=== PATIENT | female | born 1955 | race Caucasian/White ===

== ENCOUNTER 2017-01-24 02:42 | Emergency (ER) | payer MEDICARE, OTHER ==
[~2017-01-24] VITALS: Ht 167.6 cm; Wt 81.8 kg
[~2017-01-24 02:42] MED LIST: ARIP15TA3 PO; ATEN50TA PO; LISI-662 PO; NYST30CR9 TP; OMEP20 PO; SIMV-259 PO; VITAD1000 PO
[2017-01-24 03:34] LABS: ANION GAP 7 mmol/L (8-16); CALCIUM, TOTAL 9.4 mg/dL (8.8-10.5); CARBON DIOXIDE 30 mmol/L (22-29); CHLORIDE 101 mmol/L (98-107); CREATININE 0.72 mg/dL (0.60-1.30); GLOMERULAR FILTR. RATE CALC > 60 mL/min (>60); POTASSIUM 3.7 mmol/L (3.5-5.1); SODIUM SERUM 138 mmol/L (136-145); UREA NITROGEN, BLOOD 8 mg/dL (7-18)
[2017-01-24 03:47] LABS: ALANINE AMINOTRANSFERASE 24 U/L (12-78); ALBUMIN 3.2 g/dL (3.4-5.0); ASPARTATE AMINOTRANSFERASE 20 U/L (15-37); BILIRUBIN,TOTAL 0.5 mg/dL (0.1-1.0); TOTAL PROTEIN, SERUM 7.6 g/dL (6.4-8.2)
[2017-01-24 04:11] LABS: BASOPHILS # (AUTO) 0.04 K/uL (0.00-0.20); BASOPHILS % (AUTO) 0.5 % (0.0-2.0); EOSINOPHILS % (AUTO) 1.23 % (1.0-6.0); HEMATOCRIT 35.8 % (36-46); HEMOGLOBIN 11.5 g/dL (12.0-16.0); LYMPHOCYTES # (AUTO) 1.6 K/uL (1.0-4.8); LYMPHOCYTES % (AUTO) 19.3 % (22.0-44.0); MEAN CORPUSCULAR HEMOGLOBIN 28.7 pg (26.0-34.0); MEAN CORPUSCULAR HGB CONC 32.2 G/dL (31.0-37.0); MEAN CORPUSCULAR VOLUME 89 fL (80-100); MONOCYTES # (AUTO) 0.6 K/uL (0.1-1.0); MONOCYTES % (AUTO) 6.9 % (2.0-9.0); NEUTROPHILS # (AUTO) 5.9 K/uL (1.8-7.7); PLATELET COUNT (AUTO) 307 K/uL (150-450); RED BLOOD CELL COUNT(AUTO) 4.01 MIL/uL (4.00-5.20); RED CELL DISTRIBUTION WIDTH 16.8 % (11.5-14.5); WHITE BLOOD COUNT (AUTO) 8.2 K/uL (4.5-11.0)
[2017-01-24] MEDS ORDERED: CEPHALEXIN MONOHYDRATE 500 MG CAPSULE PO ONE (09:30)
[2017-01-24] MEDS ORDERED: SULFAMETHOX/TRIMETH DS 800-160 MG/TABLET PO ONE (09:30)
[2017-01-24 10:00] VITALS: BP 147/85
== END 2017-01-24 10:05 | disposition home or self-care (01) ==
LOC: EMS 02:43
DX: F20.0 Paranoid schizophrenia (principal); L03.116 Cellulitis of left lower limb; F17.210 Nicotine dependence, cigarettes, uncomplicated; Z88.8 Allergy status to other drugs, medicaments and biological substances; Z88.6 Allergy status to analgesic agent
CPT/HCPCS: 36415; 80053; 85025; 99284; 99406; G0480

== ENCOUNTER 2017-02-05 11:48 | Inpatient (IN) | payer MEDICARE, OTHER ==
[~2017-02-05] VITALS: Ht 160 cm; Wt 83.5 kg
[2017-02-05] MEDS ORDERED: LORazepam 2 MG/ML VIAL IM ONE (12:45)
[2017-02-05] MEDS ORDERED: DiphenhydrAMINE HCL 50 MG/ML VIAL IM ONE (12:45)
[2017-02-05] MEDS ORDERED: HALOPERIDOL LACTATE 5 MG/ML VIAL IM ONE (12:45)
[2017-02-05] MEDS ORDERED: DiphenhydrAMINE HCL 50 MG/ML VIAL ONE (12:48)
[2017-02-05] MEDS ORDERED: HALOPERIDOL LACTATE 5 MG/ML VIAL ONE (12:48)
[2017-02-05] MEDS ORDERED: LORazepam 2 MG/ML VIAL ONE (12:48)
[2017-02-05] MEDS ORDERED: CefTRIAXone 1 GM/DEXTROSE 50 ML IV ONE (14:15)
[2017-02-05] MEDS ORDERED: CIPROFLOXACIN 400 MG/D5% WATER 200 ML IV ONE (14:15)
[2017-02-05 14:16] LABS: EOSINOPHILS # (AUTO) 0.07 K/uL (0.00-0.70); EOSINOPHILS % (AUTO) 0.97 % (1.0-6.0); HEMATOCRIT 34.8 % (36-46); HEMOGLOBIN 11.7 g/dL (12.0-16.0); LYMPHOCYTES # (AUTO) 1.3 K/uL (1.0-4.8); LYMPHOCYTES % (AUTO) 17.4 % (22.0-44.0); MEAN CORPUSCULAR HEMOGLOBIN 28.5 pg (26.0-34.0); MEAN CORPUSCULAR HGB CONC 33.6 G/dL (31.0-37.0); MEAN CORPUSCULAR VOLUME 85 fL (80-100); MONOCYTES # (AUTO) 0.3 K/uL (0.1-1.0); MONOCYTES % (AUTO) 3.4 % (2.0-9.0); NEUTROPHILS % (AUTO) 78.2 % (40.0-70.0); PLATELET COUNT (AUTO) 249 K/uL (150-450); WHITE BLOOD COUNT (AUTO) 7.6 K/uL (4.5-11.0)
[2017-02-05 14:30] LABS: ANION GAP 9 mmol/L (8-16); CALCIUM, TOTAL 9.4 mg/dL (8.8-10.5); CARBON DIOXIDE 26 mmol/L (22-29); CHLORIDE 106 mmol/L (98-107); CREATININE 0.69 mg/dL (0.60-1.30); GLOMERULAR FILTR. RATE CALC > 60 mL/min (>60); POTASSIUM 4.4 mmol/L (3.5-5.1); SODIUM SERUM 141 mmol/L (136-145); UREA NITROGEN, BLOOD 10 mg/dL (7-18)
[2017-02-05 14:35] LABS: ALANINE AMINOTRANSFERASE 22 U/L (12-78); ASPARTATE AMINOTRANSFERASE 29 U/L (15-37); BILIRUBIN,TOTAL 0.2 mg/dL (0.1-1.0); TOTAL PROTEIN, SERUM 7.1 g/dL (6.4-8.2)
[2017-02-05] MEDS ORDERED: MORPHINE SULFATE 2 MG/ML SYRINGE IVP ONE (14:45)
[2017-02-05] MEDS ORDERED: SODIUM CL IRRIG SOLN BOTTLE 250 ML IRRIG ONE (17:15)
[2017-02-05 17:39] VITALS: BP 163/100
[2017-02-05] MEDS ORDERED: NIFEdipine 30 MG ER TABLET PO ONE (19:45)
[2017-02-05] MEDS ORDERED: BISACODYL 10 MG RECTAL RECTAL SUPPOSITORY PR PRN (19:45)
[2017-02-05] MEDS ORDERED: ALBUTEROL SULFATE 2.5 MG/0.5 ML NEB SOLUTION NEB PRN (19:45)
[2017-02-05] MEDS ORDERED: MORPHINE SULFATE 2 MG/ML SYRINGE IVP PRN (19:45)
[2017-02-05] MEDS ORDERED: MAGNESIUM HYDROXIDE SUSPENSION 30 ML UDCUP PO PRN (19:45)
[2017-02-05] MEDS ORDERED: ONDANSETRON HCL 4 MG/2 ML VIAL IVP PRN (19:45)
[2017-02-05] MEDS ORDERED: IPRATROPIUM BROMIDE 0.5 MG/2.5 ML NEB SOLUTION NEB PRN (19:45)
[2017-02-05] MEDS ORDERED: ZOLPIDEM TARTRATE 5 MG TABLET PO PRN (19:45)
[2017-02-05 20:09] VITALS: BP 152/78
[2017-02-05] MEDS: PIPERACILLIN/TAZO 3.375 GM/D5W 50 ML IV SCH (22:17)
[2017-02-05] MEDS: DOCUSATE SODIUM 100 MG CAPSULE PO SCH (22:17)
[2017-02-05] MEDS: ACETAMINOPHEN 325 MG TABLET PO PRN (22:35)
[2017-02-05 23:53] VITALS: BP 122/61
[2017-02-06] MEDS: HEPARIN SODIUM,PORCINE 5,000 UNITS/ML VIAL SQ SCH ×4 (00:55→23:39)
[2017-02-06] MEDS: PIPERACILLIN/TAZO 3.375 GM/D5W 50 ML IV SCH ×4 (02:58→20:31)
[2017-02-06 08:00] VITALS: BP 140/72
[2017-02-06] MEDS: PANTOPRAZOLE SODIUM 40 MG/VIAL IVP SCH ×2 (09:00→09:16)
[2017-02-06] MEDS: NIFEdipine 30 MG ER TABLET PO SCH (09:17)
[2017-02-06] MEDS: DOCUSATE SODIUM 100 MG CAPSULE PO SCH ×2 (09:17→20:40)
[2017-02-06] MEDS ORDERED: SODIUM CHLORIDE 0.9% 500 ML IV ONE (09:57)
[2017-02-06] MEDS: MULTIVITAMINS WITH MINERALS, THERAPEUTIC TABLET PO SCH (14:00)
[2017-02-06 16:04] VITALS: BP 127/72
[2017-02-06 20:00] VITALS: BP 126/68
[2017-02-07 01:34] VITALS: BP 139/87
[2017-02-07] MEDS: PIPERACILLIN/TAZO 3.375 GM/D5W 50 ML IV SCH ×4 (03:16→20:41)
[2017-02-07 04:35] VITALS: BP 146/69
[2017-02-07] MEDS: ACETAMINOPHEN 325 MG TABLET PO PRN (04:42)
[2017-02-07] MEDS: HEPARIN SODIUM,PORCINE 5,000 UNITS/ML VIAL SQ SCH ×2 (08:00→15:33)
[2017-02-07 09:00] VITALS: BP 141/78
[2017-02-07] MEDS: MULTIVITAMINS WITH MINERALS, THERAPEUTIC TABLET PO SCH (09:02)
[2017-02-07] MEDS: NIFEdipine 30 MG ER TABLET PO SCH (09:02)
[2017-02-07] MEDS: PANTOPRAZOLE SODIUM 40 MG/VIAL IVP SCH (09:02)
[2017-02-07] MEDS: DOCUSATE SODIUM 100 MG CAPSULE PO SCH ×2 (09:02→21:00)
[2017-02-07 11:56] VITALS: BP 136/72
[2017-02-07 16:15] VITALS: BP 139/74
[2017-02-07 20:56] VITALS: BP 138/90
[2017-02-08] MEDS: PIPERACILLIN/TAZO 3.375 GM/D5W 50 ML IV SCH ×2 (03:13→08:45)
[2017-02-08] MEDS: HEPARIN SODIUM,PORCINE 5,000 UNITS/ML VIAL SQ SCH ×4 (03:13→23:52)
[2017-02-08 03:21] VITALS: BP 120/49
[2017-02-08 07:43] VITALS: BP 153/71
[2017-02-08 08:45] LABS: BASOPHILS % (AUTO) 0.4 % (0.0-2.0); HEMATOCRIT 42.4 % (36-46); HEMOGLOBIN 13.9 g/dL (12.0-16.0); LYMPHOCYTES # (AUTO) 1.4 K/uL (1.0-4.8); LYMPHOCYTES % (AUTO) 21.8 % (22.0-44.0); MEAN CORPUSCULAR HEMOGLOBIN 28.5 pg (26.0-34.0); MEAN CORPUSCULAR HGB CONC 32.8 G/dL (31.0-37.0); MEAN CORPUSCULAR VOLUME 87 fL (80-100); MONOCYTES # (AUTO) 0.3 K/uL (0.1-1.0); MONOCYTES % (AUTO) 4.3 % (2.0-9.0); NEUTROPHILS # (AUTO) 4.8 K/uL (1.8-7.7); NEUTROPHILS % (AUTO) 72.5 % (40.0-70.0); PLATELET COUNT (AUTO) 282 K/uL (150-450); RED BLOOD CELL COUNT(AUTO) 4.88 MIL/uL (4.00-5.20); RED CELL DISTRIBUTION WIDTH 15.5 % (11.5-14.5); WHITE BLOOD COUNT (AUTO) 6.6 K/uL (4.5-11.0)
[2017-02-08] MEDS: PANTOPRAZOLE SODIUM 40 MG/VIAL IVP SCH (08:45)
[2017-02-08] MEDS: NIFEdipine 30 MG ER TABLET PO SCH (08:45)
[2017-02-08] MEDS: DOCUSATE SODIUM 100 MG CAPSULE PO SCH ×2 (08:46→20:24)
[2017-02-08] MEDS: MULTIVITAMINS WITH MINERALS, THERAPEUTIC TABLET PO SCH (08:46)
[2017-02-08 09:19] LABS: ANION GAP 9 mmol/L (8-16); CALCIUM, TOTAL 9.2 mg/dL (8.8-10.5); CARBON DIOXIDE 27 mmol/L (22-29); CHLORIDE 99 mmol/L (98-107); CREATININE 0.93 mg/dL (0.60-1.30); GLOMERULAR FILTR. RATE CALC > 60 mL/min (>60); POTASSIUM 4.3 mmol/L (3.5-5.1); SODIUM SERUM 135 mmol/L (136-145); UREA NITROGEN, BLOOD 14 mg/dL (7-18)
[2017-02-08 11:47] VITALS: BP 153/81
[2017-02-08] MEDS: ARIPiprazole 15 MG TABLET PO SCH (12:00)
[2017-02-08 15:30] VITALS: BP 149/77
[2017-02-08 20:16] VITALS: BP 152/71
[2017-02-08] MEDS: SULFAMETHOX/TRIMETH DS 800-160 MG/TABLET PO SCH (20:24)
[2017-02-08] MEDS: ACETAMINOPHEN 325 MG TABLET PO PRN (20:47)
[2017-02-08 23:00] VITALS: BP 127/86
[2017-02-09] MEDS: HYDROCODONE/ACETAMINOPHEN 5-325 MG TABLET PO PRN (02:16)
[2017-02-09] MEDS: LORazepam 1 MG TABLET PO PRN (02:44)
[2017-02-09 04:46] VITALS: BP 122/60
[2017-02-09] MEDS: MULTIVITAMINS WITH MINERALS, THERAPEUTIC TABLET PO SCH (09:00)
[2017-02-09] MEDS: SULFAMETHOX/TRIMETH DS 800-160 MG/TABLET PO SCH ×2 (09:00→20:02)
[2017-02-09] MEDS: PANTOPRAZOLE SODIUM 40 MG DR TABLET PO SCH (09:00)
[2017-02-09] MEDS: DOCUSATE SODIUM 100 MG CAPSULE PO SCH ×2 (09:00→20:02)
[2017-02-09] MEDS: NIFEdipine 30 MG ER TABLET PO SCH (09:00)
[2017-02-09] MEDS: ARIPiprazole 15 MG TABLET PO SCH (09:00)
[2017-02-09] MEDS: HEPARIN SODIUM,PORCINE 5,000 UNITS/ML VIAL SQ SCH ×3 (09:00→23:51)
[2017-02-09 23:47] VITALS: BP 142/65
[2017-02-10 09:00] VITALS: BP 129/87
[2017-02-10] MEDS: PANTOPRAZOLE SODIUM 40 MG DR TABLET PO SCH (09:08)
[2017-02-10] MEDS: HYDROCODONE/ACETAMINOPHEN 5-325 MG TABLET PO PRN ×2 (09:09→15:41)
[2017-02-10] MEDS: MULTIVITAMINS WITH MINERALS, THERAPEUTIC TABLET PO SCH (09:09)
[2017-02-10] MEDS: SULFAMETHOX/TRIMETH DS 800-160 MG/TABLET PO SCH ×2 (09:09→21:24)
[2017-02-10] MEDS: DOCUSATE SODIUM 100 MG CAPSULE PO SCH ×2 (09:09→21:24)
[2017-02-10] MEDS: LORazepam 1 MG TABLET PO PRN ×2 (09:09→15:41)
[2017-02-10] MEDS: HEPARIN SODIUM,PORCINE 5,000 UNITS/ML VIAL SQ SCH ×3 (09:09→23:51)
[2017-02-10] MEDS: HALOPERIDOL 5 MG TABLET PO PRN ×3 (09:10→15:41)
[2017-02-10] MEDS: ARIPiprazole 15 MG TABLET PO SCH (09:10)
[2017-02-10] MEDS: NIFEdipine 30 MG ER TABLET PO SCH (09:10)
[2017-02-10 19:53] VITALS: BP 147/77
[2017-02-11 00:18] VITALS: BP 141/69
[2017-02-11 06:04] VITALS: BP 128/72
[2017-02-11 07:52] VITALS: BP 135/76
[2017-02-11] MEDS: HEPARIN SODIUM,PORCINE 5,000 UNITS/ML VIAL SQ SCH (08:00)
[2017-02-11] MEDS: SULFAMETHOX/TRIMETH DS 800-160 MG/TABLET PO SCH (08:51)
[2017-02-11] MEDS: NIFEdipine 30 MG ER TABLET PO SCH (08:51)
[2017-02-11] MEDS: MULTIVITAMINS WITH MINERALS, THERAPEUTIC TABLET PO SCH (08:51)
[2017-02-11] MEDS: DOCUSATE SODIUM 100 MG CAPSULE PO SCH (08:51)
[2017-02-11] MEDS: PANTOPRAZOLE SODIUM 40 MG DR TABLET PO SCH (08:51)
[2017-02-11] MEDS ORDERED: RisperiDONE 2 MG TABLET PO SCH (09:00)
[2017-02-11 11:19] VITALS: BP 115/80
== END 2017-02-11 11:45 | DRG 603 ==
LOC: EMS 11:50 → 6N 14:29
PROVIDERS: ADMIT Hospitalist; ATTEND Hospitalist
DX: L03.116 Cellulitis of left lower limb (principal); E44.0 Moderate protein-calorie malnutrition; F20.0 Paranoid schizophrenia; S81.802A Unspecified open wound, left lower leg, initial encounter; B96.4 Proteus (mirabilis) (morganii) as the cause of diseases classified elsewhere; J44.9 Chronic obstructive pulmonary disease, unspecified; F17.210 Nicotine dependence, cigarettes, uncomplicated; I10 Essential (primary) hypertension; Z68.32 Body mass index [BMI] 32.0-32.9, adult; E66.9 Obesity, unspecified; F32.9 Major depressive disorder, single episode, unspecified; Z53.29 Procedure and treatment not carried out because of patient's decision for other reasons; X58.XXXA Exposure to other specified factors, initial encounter; Y93.89 Activity, other specified; Y92.89 Other specified places as the place of occurrence of the external cause; Y99.8 Other external cause status; Z91.19 Patient's noncompliance with other medical treatment and regimen; Z90.49 Acquired absence of other specified parts of digestive tract; Z88.6 Allergy status to analgesic agent; Z88.8 Allergy status to other drugs, medicaments and biological substances
CPT/HCPCS: 87070; 87205; 96365; 96368; 96372; 99285; C9113; G0480; J0696; J0744; J1200; J1630; J1644; J2060; J2543; J7040

== ENCOUNTER 2017-03-01 11:55 | Inpatient (IN) | payer MEDICARE, OTHER ==
[~2017-03-01] VITALS: Ht 160 cm; Wt 81.8 kg
[~2017-03-01 11:55] MED LIST changes: -ARIP15TA3 PO; -ATEN50TA PO; +DSS100 PO; +HALO5 PO; -LISI-662 PO; +MV-M1TAB2 PO; +NIFE30TA5 PO; -NYST30CR9 TP; -OMEP20 PO; +PANT40TA25 PO; -SIMV-259 PO; -VITAD1000 PO
[2017-03-01 13:18] LABS: ANION GAP 7 mmol/L (8-16); CALCIUM, TOTAL 8.7 mg/dL (8.8-10.5); CARBON DIOXIDE 31 mmol/L (22-29); CHLORIDE 103 mmol/L (98-107); CREATININE 0.64 mg/dL (0.60-1.30); GLOMERULAR FILTR. RATE CALC > 60 mL/min (>60); SODIUM SERUM 141 mmol/L (136-145); UREA NITROGEN, BLOOD 11 mg/dL (7-18)
[2017-03-01 13:21] LABS: BASOPHILS % (AUTO) 0.2 % (0.0-2.0); HEMATOCRIT 34.9 % (36-46); HEMOGLOBIN 11.8 g/dL (12.0-16.0); LYMPHOCYTES # (AUTO) 1.3 K/uL (1.0-4.8); LYMPHOCYTES % (AUTO) 16.3 % (22.0-44.0); MEAN CORPUSCULAR HEMOGLOBIN 29.2 pg (26.0-34.0); MEAN CORPUSCULAR HGB CONC 33.8 G/dL (31.0-37.0); MEAN CORPUSCULAR VOLUME 86 fL (80-100); MONOCYTES # (AUTO) 0.6 K/uL (0.1-1.0); MONOCYTES % (AUTO) 7.6 % (2.0-9.0); NEUTROPHILS # (AUTO) 5.9 K/uL (1.8-7.7); NEUTROPHILS % (AUTO) 74.9 % (40.0-70.0); PLATELET COUNT (AUTO) 297 K/uL (150-450); RED BLOOD CELL COUNT(AUTO) 4.05 MIL/uL (4.00-5.20); RED CELL DISTRIBUTION WIDTH 15.1 % (11.5-14.5); WHITE BLOOD COUNT (AUTO) 7.9 K/uL (4.5-11.0)
[2017-03-01 13:25] LABS: ALANINE AMINOTRANSFERASE 23 U/L (12-78); ALBUMIN 3.1 g/dL (3.4-5.0); ASPARTATE AMINOTRANSFERASE 20 U/L (15-37); BILIRUBIN,TOTAL 0.2 mg/dL (0.1-1.0)
[2017-03-01] MEDS ORDERED: VANCOMYCIN HCL 1 GM/D5% WATER 200 ML IV ONE (13:30)
[2017-03-01] MEDS ORDERED: HALOPERIDOL 5 MG TABLET PO ONE (13:45)
[2017-03-01] MEDS ORDERED: LORazepam 2 MG TABLET PO ONE (13:45)
[2017-03-01] MEDS ORDERED: ONDANSETRON HCL 4 MG/2 ML VIAL IVP PRN ×2 (13:45→18:45)
[2017-03-01] MEDS ORDERED: ACETAMINOPHEN 325 MG TABLET PO PRN (13:45)
[2017-03-01] MEDS ORDERED: SODIUM CHLORIDE 0.9% 500 ML IV ONE (16:40)
[2017-03-01 17:01] VITALS: BP 154/91
[2017-03-01] MEDS ORDERED: MORPHINE SULFATE 2 MG/ML SYRINGE IVP PRN (18:45)
[2017-03-01] MEDS ORDERED: MAGNESIUM HYDROXIDE SUSPENSION 30 ML UDCUP PO PRN (18:45)
[2017-03-01] MEDS ORDERED: BISACODYL 10 MG RECTAL RECTAL SUPPOSITORY PR PRN (18:45)
[2017-03-01] MEDS ORDERED: ZOLPIDEM TARTRATE 5 MG TABLET PO PRN (18:45)
[2017-03-01] MEDS ORDERED: *CLINICAL-CEFTAROLINE DOSING CLINICAL ONE (18:45)
[2017-03-01] MEDS ORDERED: CEFTAROLINE 600 MG/D5W 250 ML IV SCH (19:15)
[2017-03-01 20:15] VITALS: BP 129/69
[2017-03-01] MEDS: CEFTAROLINE 600 MG/D5W 250 ML IV SCH (20:28)
[2017-03-01] MEDS: HALOPERIDOL 5 MG TABLET PO SCH (21:00)
[2017-03-01] MEDS: DOCUSATE SODIUM 100 MG CAPSULE PO SCH (21:00)
[2017-03-02] VITALS: BP 131/64
[2017-03-02 04:00] VITALS: BP 110/52
[2017-03-02 07:34] VITALS: BP 144/85
[2017-03-02] MEDS: HEPARIN SODIUM,PORCINE 5,000 UNITS/ML VIAL SQ SCH ×3 (08:00→15:17)
[2017-03-02] MEDS: CEFTAROLINE 600 MG/D5W 250 ML IV SCH ×2 (08:00→21:07)
[2017-03-02] MEDS: NIFEdipine 30 MG ER TABLET PO SCH (09:00)
[2017-03-02] MEDS: DOCUSATE SODIUM 100 MG CAPSULE PO SCH ×2 (09:00→21:00)
[2017-03-02] MEDS: MULTIVITAMINS WITH MINERALS, THERAPEUTIC TABLET PO SCH (09:00)
[2017-03-02] MEDS: PANTOPRAZOLE SODIUM 40 MG DR TABLET PO SCH (09:00)
[2017-03-02] MEDS: HALOPERIDOL 5 MG TABLET PO SCH ×2 (09:00→21:00)
[2017-03-02 11:06] VITALS: BP 125/59
[2017-03-02] MEDS: ACETAMINOPHEN 325 MG TABLET PO PRN (13:10)
[2017-03-02] MEDS ORDERED: SODIUM CHLORIDE 0.9% IRRIG BTL 1,000 ML IRRIG ONE (15:04)
[2017-03-02 15:30] VITALS: BP 151/90
[2017-03-02 19:13] VITALS: BP 137/84
[2017-03-02] MEDS ORDERED: LORazepam 2 MG/ML VIAL IVP PRN (20:15)
[2017-03-02] MEDS ORDERED: HALOPERIDOL 5 MG TABLET PO SCH (21:00)
[2017-03-02] MEDS: HYDROCODONE/ACETAMINOPHEN 5-325 MG TABLET PO PRN (21:14)
[2017-03-03 04:28] VITALS: BP 139/81
[2017-03-03 07:50] VITALS: BP 142/84
[2017-03-03] MEDS: CEFTAROLINE 600 MG/D5W 250 ML IV SCH (08:00)
[2017-03-03] MEDS: HEPARIN SODIUM,PORCINE 5,000 UNITS/ML VIAL SQ SCH ×4 (08:00→23:30)
[2017-03-03] MEDS: ACETAMINOPHEN 325 MG TABLET PO PRN (08:02)
[2017-03-03] MEDS: MULTIVITAMINS WITH MINERALS, THERAPEUTIC TABLET PO SCH (08:06)
[2017-03-03] MEDS: PANTOPRAZOLE SODIUM 40 MG DR TABLET PO SCH (08:06)
[2017-03-03] MEDS: HALOPERIDOL 5 MG TABLET PO SCH ×2 (08:06→22:49)
[2017-03-03] MEDS: DOCUSATE SODIUM 100 MG CAPSULE PO SCH ×2 (08:06→22:48)
[2017-03-03] MEDS: NIFEdipine 30 MG ER TABLET PO SCH (08:06)
[2017-03-03 12:30] VITALS: BP 148/89
[2017-03-03] MEDS: LORazepam 2 MG/ML VIAL IM PRN (14:18)
[2017-03-03 15:48] VITALS: BP 136/74
[2017-03-03] MEDS: CEPHALEXIN MONOHYDRATE 500 MG CAPSULE PO SCH ×2 (17:47→23:24)
[2017-03-03 19:27] VITALS: BP 130/88
[2017-03-03] MEDS: SULFAMETHOX/TRIMETH DS 800-160 MG/TABLET PO SCH (22:48)
[2017-03-03] MEDS: LORazepam 1 MG TABLET PO PRN (23:24)
[2017-03-04 00:10] VITALS: BP 142/78
[2017-03-04 05:09] VITALS: BP 134/82
[2017-03-04] MEDS: CEPHALEXIN MONOHYDRATE 500 MG CAPSULE PO SCH ×5 (05:50→23:41)
[2017-03-04] MEDS: HEPARIN SODIUM,PORCINE 5,000 UNITS/ML VIAL SQ SCH ×3 (08:00→23:50)
[2017-03-04 08:02] VITALS: BP 145/89
[2017-03-04] MEDS: HALOPERIDOL 5 MG TABLET PO SCH (09:40)
[2017-03-04] MEDS: MULTIVITAMINS WITH MINERALS, THERAPEUTIC TABLET PO SCH (09:40)
[2017-03-04] MEDS: DOCUSATE SODIUM 100 MG CAPSULE PO SCH ×2 (09:40→23:41)
[2017-03-04] MEDS: PANTOPRAZOLE SODIUM 40 MG DR TABLET PO SCH (09:41)
[2017-03-04] MEDS: SULFAMETHOX/TRIMETH DS 800-160 MG/TABLET PO SCH ×2 (09:41→23:41)
[2017-03-04] MEDS: NIFEdipine 30 MG ER TABLET PO SCH (09:41)
[2017-03-04 11:48] VITALS: BP 146/81
[2017-03-04] MEDS ORDERED: SODIUM CL IRRIG SOLN BOTTLE 250 ML IRRIG ONE (13:58)
[2017-03-04] MEDS: LORazepam 2 MG/ML VIAL IM PRN (14:40)
[2017-03-04 15:26] VITALS: BP 139/91
[2017-03-04] MEDS: LORazepam 1 MG TABLET PO PRN (23:41)
[2017-03-04] MEDS: HALOPERIDOL 10 MG TABLET PO SCH (23:41)
[2017-03-05 00:01] VITALS: BP 129/82
[2017-03-05] MEDS: ACETAMINOPHEN 325 MG TABLET PO PRN (00:46)
[2017-03-05 04:09] VITALS: BP 126/80
[2017-03-05] MEDS: CEPHALEXIN MONOHYDRATE 500 MG CAPSULE PO SCH ×4 (05:46→23:18)
[2017-03-05 07:44] VITALS: BP 142/79
[2017-03-05] MEDS: SULFAMETHOX/TRIMETH DS 800-160 MG/TABLET PO SCH ×2 (08:37→20:21)
[2017-03-05] MEDS: MULTIVITAMINS WITH MINERALS, THERAPEUTIC TABLET PO SCH (08:38)
[2017-03-05] MEDS: HEPARIN SODIUM,PORCINE 5,000 UNITS/ML VIAL SQ SCH ×3 (08:38→23:22)
[2017-03-05] MEDS: DOCUSATE SODIUM 100 MG CAPSULE PO SCH ×2 (08:38→20:22)
[2017-03-05] MEDS: PANTOPRAZOLE SODIUM 40 MG DR TABLET PO SCH (08:38)
[2017-03-05] MEDS: NIFEdipine 30 MG ER TABLET PO SCH (08:38)
[2017-03-05] MEDS: HALOPERIDOL 10 MG TABLET PO SCH ×2 (08:38→20:21)
[2017-03-05] MEDS: LORazepam 1 MG TABLET PO PRN (08:41)
[2017-03-05 15:34] VITALS: BP 128/82
[2017-03-05 19:30] VITALS: BP 131/80
[2017-03-05 23:30] VITALS: BP 126/80
[2017-03-06 03:30] VITALS: BP 128/78
[2017-03-06] MEDS: CEPHALEXIN MONOHYDRATE 500 MG CAPSULE PO SCH ×3 (05:38→18:22)
[2017-03-06] MEDS: NIFEdipine 30 MG ER TABLET PO SCH (08:21)
[2017-03-06] MEDS: SULFAMETHOX/TRIMETH DS 800-160 MG/TABLET PO SCH (08:21)
[2017-03-06] MEDS: HALOPERIDOL 10 MG TABLET PO SCH (08:21)
[2017-03-06] MEDS: HEPARIN SODIUM,PORCINE 5,000 UNITS/ML VIAL SQ SCH ×2 (08:22→16:00)
[2017-03-06] MEDS: DOCUSATE SODIUM 100 MG CAPSULE PO SCH (08:22)
[2017-03-06] MEDS: PANTOPRAZOLE SODIUM 40 MG DR TABLET PO SCH (08:22)
[2017-03-06] MEDS: MULTIVITAMINS WITH MINERALS, THERAPEUTIC TABLET PO SCH (08:22)
[2017-03-06] MEDS: HYDROCODONE/ACETAMINOPHEN 5-325 MG TABLET PO PRN (10:06)
[2017-03-06] MEDS: LORazepam 1 MG TABLET PO PRN (10:06)
[2017-03-07] MEDS: CEPHALEXIN MONOHYDRATE 500 MG CAPSULE PO SCH ×4 (00:26→18:15)
[2017-03-07] MEDS: DOCUSATE SODIUM 100 MG CAPSULE PO SCH ×3 (00:26→20:04)
[2017-03-07] MEDS: HALOPERIDOL 10 MG TABLET PO SCH ×3 (00:26→20:04)
[2017-03-07] MEDS: SULFAMETHOX/TRIMETH DS 800-160 MG/TABLET PO SCH ×3 (00:27→20:04)
[2017-03-07 00:33] VITALS: BP 139/76
[2017-03-07] MEDS: HEPARIN SODIUM,PORCINE 5,000 UNITS/ML VIAL SQ SCH ×4 (08:00→23:47)
[2017-03-07] MEDS: MULTIVITAMINS WITH MINERALS, THERAPEUTIC TABLET PO SCH (08:53)
[2017-03-07] MEDS: PANTOPRAZOLE SODIUM 40 MG DR TABLET PO SCH (08:53)
[2017-03-07] MEDS: LORazepam 1 MG TABLET PO PRN (08:53)
[2017-03-07] MEDS: NIFEdipine 30 MG ER TABLET PO SCH (08:54)
[2017-03-07] MEDS: RisperiDONE 1 MG TABLET PO SCH ×2 (09:15→20:04)
[2017-03-07 15:00] VITALS: BP 127/80
[2017-03-07 19:29] VITALS: BP 132/84
[2017-03-07] MEDS: LORazepam 2 MG/ML VIAL IM PRN (21:27)
[2017-03-08] VITALS: BP 126/64
[2017-03-08] MEDS: CEPHALEXIN MONOHYDRATE 500 MG CAPSULE PO SCH ×4 (01:40→18:24)
[2017-03-08 04:05] VITALS: BP 128/66
[2017-03-08 07:47] VITALS: BP 127/70
[2017-03-08] MEDS: HEPARIN SODIUM,PORCINE 5,000 UNITS/ML VIAL SQ SCH ×2 (08:00→16:00)
[2017-03-08] MEDS: SULFAMETHOX/TRIMETH DS 800-160 MG/TABLET PO SCH ×2 (10:30→21:39)
[2017-03-08] MEDS: PANTOPRAZOLE SODIUM 40 MG DR TABLET PO SCH (10:30)
[2017-03-08] MEDS: MULTIVITAMINS WITH MINERALS, THERAPEUTIC TABLET PO SCH (10:30)
[2017-03-08] MEDS: DOCUSATE SODIUM 100 MG CAPSULE PO SCH ×2 (10:30→21:39)
[2017-03-08] MEDS: HALOPERIDOL 10 MG TABLET PO SCH ×2 (10:30→21:39)
[2017-03-08] MEDS: NIFEdipine 30 MG ER TABLET PO SCH (10:30)
[2017-03-08] MEDS: RisperiDONE 1 MG TABLET PO SCH ×2 (10:30→21:39)
[2017-03-08 11:27] VITALS: BP 127/80
[2017-03-08 15:27] VITALS: BP 132/80
[2017-03-09] MEDS: CEPHALEXIN MONOHYDRATE 500 MG CAPSULE PO SCH ×5 (01:19→17:28)
[2017-03-09 07:13] VITALS: BP 138/88
[2017-03-09] MEDS: HEPARIN SODIUM,PORCINE 5,000 UNITS/ML VIAL SQ SCH ×4 (08:00→16:00)
[2017-03-09] MEDS: HALOPERIDOL 10 MG TABLET PO SCH ×2 (09:00→20:44)
[2017-03-09] MEDS: PANTOPRAZOLE SODIUM 40 MG DR TABLET PO SCH (09:00)
[2017-03-09] MEDS: NIFEdipine 30 MG ER TABLET PO SCH (09:00)
[2017-03-09] MEDS: SULFAMETHOX/TRIMETH DS 800-160 MG/TABLET PO SCH ×2 (09:00→20:44)
[2017-03-09] MEDS: DOCUSATE SODIUM 100 MG CAPSULE PO SCH ×2 (09:00→20:44)
[2017-03-09] MEDS: MULTIVITAMINS WITH MINERALS, THERAPEUTIC TABLET PO SCH (09:01)
[2017-03-09] MEDS: RisperiDONE 1 MG TABLET PO SCH ×2 (09:01→20:44)
[2017-03-09 11:14] VITALS: BP 135/78
[2017-03-09 15:11] VITALS: BP 129/80
[2017-03-09] MEDS: ACETAMINOPHEN 325 MG TABLET PO PRN (17:28)
[2017-03-09 21:15] VITALS: BP 127/74
[2017-03-10] MEDS: CEPHALEXIN MONOHYDRATE 500 MG CAPSULE PO SCH ×4 (00:14→18:09)
[2017-03-10 01:19] VITALS: BP 120/76
[2017-03-10 05:45] VITALS: BP 134/81
[2017-03-10] MEDS: HEPARIN SODIUM,PORCINE 5,000 UNITS/ML VIAL SQ SCH ×3 (08:00→16:00)
[2017-03-10 08:14] VITALS: BP 132/75
[2017-03-10] MEDS: PANTOPRAZOLE SODIUM 40 MG DR TABLET PO SCH (08:27)
[2017-03-10] MEDS: SULFAMETHOX/TRIMETH DS 800-160 MG/TABLET PO SCH ×2 (08:27→21:16)
[2017-03-10] MEDS: DOCUSATE SODIUM 100 MG CAPSULE PO SCH ×2 (08:27→21:16)
[2017-03-10] MEDS: HALOPERIDOL 10 MG TABLET PO SCH ×2 (08:27→21:16)
[2017-03-10] MEDS: NIFEdipine 30 MG ER TABLET PO SCH (08:27)
[2017-03-10] MEDS: MULTIVITAMINS WITH MINERALS, THERAPEUTIC TABLET PO SCH (08:28)
[2017-03-10] MEDS: RisperiDONE 1 MG TABLET PO SCH ×2 (08:30→21:16)
[2017-03-10 16:22] VITALS: BP 129/74
[2017-03-10 19:29] VITALS: BP 128/76
[2017-03-11] MEDS: CEPHALEXIN MONOHYDRATE 500 MG CAPSULE PO SCH ×4 (00:12→17:27)
[2017-03-11 04:35] VITALS: BP 120/84
[2017-03-11 07:27] VITALS: BP 131/76
[2017-03-11] MEDS: HEPARIN SODIUM,PORCINE 5,000 UNITS/ML VIAL SQ SCH ×3 (08:00→16:00)
[2017-03-11] MEDS: MULTIVITAMINS WITH MINERALS, THERAPEUTIC TABLET PO SCH (08:28)
[2017-03-11] MEDS: PANTOPRAZOLE SODIUM 40 MG DR TABLET PO SCH (08:28)
[2017-03-11] MEDS: SULFAMETHOX/TRIMETH DS 800-160 MG/TABLET PO SCH ×2 (08:28→21:07)
[2017-03-11] MEDS: HALOPERIDOL 10 MG TABLET PO SCH ×2 (08:28→21:07)
[2017-03-11] MEDS: DOCUSATE SODIUM 100 MG CAPSULE PO SCH ×2 (08:29→21:07)
[2017-03-11] MEDS: RisperiDONE 1 MG TABLET PO SCH ×2 (08:29→21:07)
[2017-03-11] MEDS: NIFEdipine 30 MG ER TABLET PO SCH (08:35)
[2017-03-11 11:34] VITALS: BP 124/82
[2017-03-11 15:58] VITALS: BP 140/97
[2017-03-11 20:02] VITALS: BP 148/84
[2017-03-12] VITALS (7 sets, daily range): BP systolic 126–148; BP diastolic 60–85
[2017-03-12] MEDS: CEPHALEXIN MONOHYDRATE 500 MG CAPSULE PO SCH ×5 (00:21→23:27)
[2017-03-12] MEDS: HEPARIN SODIUM,PORCINE 5,000 UNITS/ML VIAL SQ SCH ×4 (08:00→23:27)
[2017-03-12] MEDS: PANTOPRAZOLE SODIUM 40 MG DR TABLET PO SCH (10:10)
[2017-03-12] MEDS: SULFAMETHOX/TRIMETH DS 800-160 MG/TABLET PO SCH ×2 (10:10→21:24)
[2017-03-12] MEDS: MULTIVITAMINS WITH MINERALS, THERAPEUTIC TABLET PO SCH (10:10)
[2017-03-12] MEDS: DOCUSATE SODIUM 100 MG CAPSULE PO SCH ×2 (10:11→21:24)
[2017-03-12] MEDS: HALOPERIDOL 10 MG TABLET PO SCH ×2 (10:11→21:24)
[2017-03-12] MEDS: RisperiDONE 1 MG TABLET PO SCH ×2 (10:12→21:24)
[2017-03-12] MEDS: NIFEdipine 30 MG ER TABLET PO SCH (10:13)
[2017-03-12] MEDS: ACETAMINOPHEN 325 MG TABLET PO PRN (18:57)
[2017-03-12] MEDS: LORazepam 2 MG/ML VIAL IM PRN (21:25)
[2017-03-13 03:30] VITALS: BP 124/66
[2017-03-13] MEDS: CEPHALEXIN MONOHYDRATE 500 MG CAPSULE PO SCH ×3 (06:20→18:40)
[2017-03-13 07:22] VITALS: BP 128/69
[2017-03-13] MEDS: HEPARIN SODIUM,PORCINE 5,000 UNITS/ML VIAL SQ SCH ×2 (08:00→16:00)
[2017-03-13] MEDS: SULFAMETHOX/TRIMETH DS 800-160 MG/TABLET PO SCH ×2 (09:57→21:01)
[2017-03-13] MEDS: HALOPERIDOL 10 MG TABLET PO SCH ×2 (09:57→21:01)
[2017-03-13] MEDS: NIFEdipine 30 MG ER TABLET PO SCH (09:57)
[2017-03-13] MEDS: DOCUSATE SODIUM 100 MG CAPSULE PO SCH ×2 (09:57→21:01)
[2017-03-13] MEDS: PANTOPRAZOLE SODIUM 40 MG DR TABLET PO SCH (09:58)
[2017-03-13] MEDS: MULTIVITAMINS WITH MINERALS, THERAPEUTIC TABLET PO SCH (09:58)
[2017-03-13] MEDS: LORazepam 1 MG TABLET PO PRN (09:58)
[2017-03-13] MEDS: RisperiDONE 1 MG TABLET PO SCH ×2 (09:58→21:01)
[2017-03-13 11:10] VITALS: BP 130/71
[2017-03-13 17:27] VITALS: BP 141/75
[2017-03-13 19:35] VITALS: BP 124/66
[2017-03-13 23:59] VITALS: BP 120/88
[2017-03-14] MEDS: CEPHALEXIN MONOHYDRATE 500 MG CAPSULE PO SCH ×4 (00:25→22:21)
[2017-03-14 04:15] VITALS: BP 136/62
[2017-03-14 07:53] VITALS: BP 157/88
[2017-03-14] MEDS: HEPARIN SODIUM,PORCINE 5,000 UNITS/ML VIAL SQ SCH ×4 (08:00→22:21)
[2017-03-14] MEDS: SULFAMETHOX/TRIMETH DS 800-160 MG/TABLET PO SCH ×2 (08:19→22:21)
[2017-03-14] MEDS: DOCUSATE SODIUM 100 MG CAPSULE PO SCH ×2 (08:19→22:23)
[2017-03-14] MEDS: NIFEdipine 30 MG ER TABLET PO SCH (08:19)
[2017-03-14] MEDS: PANTOPRAZOLE SODIUM 40 MG DR TABLET PO SCH (08:19)
[2017-03-14] MEDS: RisperiDONE 1 MG TABLET PO SCH ×2 (08:19→22:23)
[2017-03-14] MEDS: MULTIVITAMINS WITH MINERALS, THERAPEUTIC TABLET PO SCH (08:19)
[2017-03-14] MEDS: HALOPERIDOL 10 MG TABLET PO SCH ×2 (08:19→22:22)
[2017-03-14 23:17] VITALS: BP 109/67
[2017-03-15 04:30] VITALS: BP 119/66
[2017-03-15] MEDS: CEPHALEXIN MONOHYDRATE 500 MG CAPSULE PO SCH ×4 (05:26→18:00)
[2017-03-15] MEDS: ACETAMINOPHEN 325 MG TABLET PO PRN ×2 (06:38→16:40)
[2017-03-15 07:35] VITALS: BP 141/79
[2017-03-15] MEDS: HEPARIN SODIUM,PORCINE 5,000 UNITS/ML VIAL SQ SCH ×2 (08:00→16:00)
[2017-03-15] MEDS: SULFAMETHOX/TRIMETH DS 800-160 MG/TABLET PO SCH (08:42)
[2017-03-15] MEDS: NIFEdipine 30 MG ER TABLET PO SCH (08:43)
[2017-03-15] MEDS: HALOPERIDOL 10 MG TABLET PO SCH (08:43)
[2017-03-15] MEDS: DOCUSATE SODIUM 100 MG CAPSULE PO SCH (08:43)
[2017-03-15] MEDS: RisperiDONE 1 MG TABLET PO SCH (08:44)
[2017-03-15] MEDS: MULTIVITAMINS WITH MINERALS, THERAPEUTIC TABLET PO SCH (08:44)
[2017-03-15] MEDS: PANTOPRAZOLE SODIUM 40 MG DR TABLET PO SCH (08:44)
[2017-03-16] MEDS: HALOPERIDOL 10 MG TABLET PO SCH ×3 (01:09→20:47)
[2017-03-16] MEDS: CEPHALEXIN MONOHYDRATE 500 MG CAPSULE PO SCH ×5 (01:09→20:46)
[2017-03-16] MEDS: SULFAMETHOX/TRIMETH DS 800-160 MG/TABLET PO SCH ×3 (01:09→20:46)
[2017-03-16] MEDS: DOCUSATE SODIUM 100 MG CAPSULE PO SCH ×3 (01:09→20:47)
[2017-03-16] MEDS: RisperiDONE 1 MG TABLET PO SCH ×3 (01:09→20:47)
[2017-03-16 04:58] VITALS: BP 120/72
[2017-03-16 07:48] VITALS: BP 118/66
[2017-03-16] MEDS: HEPARIN SODIUM,PORCINE 5,000 UNITS/ML VIAL SQ SCH ×3 (08:00→16:00)
[2017-03-16] MEDS: MULTIVITAMINS WITH MINERALS, THERAPEUTIC TABLET PO SCH (08:28)
[2017-03-16] MEDS: PANTOPRAZOLE SODIUM 40 MG DR TABLET PO SCH (08:29)
[2017-03-16] MEDS: LORazepam 1 MG TABLET PO PRN (08:29)
[2017-03-16] MEDS: NIFEdipine 30 MG ER TABLET PO SCH (08:29)
[2017-03-16 11:45] VITALS: BP 119/67
[2017-03-16 15:19] VITALS: BP 115/69
[2017-03-16 23:03] VITALS: BP 111/81
[2017-03-17] MEDS: CEPHALEXIN MONOHYDRATE 500 MG CAPSULE PO SCH ×3 (00:14→11:31)
[2017-03-17 04:56] VITALS: BP 121/89
[2017-03-17 07:46] VITALS: BP 110/81
[2017-03-17] MEDS: HEPARIN SODIUM,PORCINE 5,000 UNITS/ML VIAL SQ SCH ×2 (08:00)
[2017-03-17] MEDS: SULFAMETHOX/TRIMETH DS 800-160 MG/TABLET PO SCH (09:10)
[2017-03-17] MEDS: DOCUSATE SODIUM 100 MG CAPSULE PO SCH (09:10)
[2017-03-17] MEDS: HALOPERIDOL 10 MG TABLET PO SCH (09:11)
[2017-03-17] MEDS: RisperiDONE 1 MG TABLET PO SCH (09:12)
[2017-03-17] MEDS: NIFEdipine 30 MG ER TABLET PO SCH (09:12)
[2017-03-17] MEDS: PANTOPRAZOLE SODIUM 40 MG DR TABLET PO SCH (09:12)
[2017-03-17] MEDS: MULTIVITAMINS WITH MINERALS, THERAPEUTIC TABLET PO SCH (09:12)
== END 2017-03-17 12:40 | DRG 602 ==
LOC: EMS 11:59 → EEVIPCON 11:59 → 6N 15:53
PROVIDERS: ADMIT Internal Medicine; ATTEND Internal Medicine
DX: L03.116 Cellulitis of left lower limb (principal); E43 Unspecified severe protein-calorie malnutrition; F23 Brief psychotic disorder; I10 Essential (primary) hypertension; F25.0 Schizoaffective disorder, bipolar type; F17.200 Nicotine dependence, unspecified, uncomplicated; K21.9 Gastro-esophageal reflux disease without esophagitis; J44.9 Chronic obstructive pulmonary disease, unspecified; Z59.0 Homelessness; Z91.19 Patient's noncompliance with other medical treatment and regimen; Z68.32 Body mass index [BMI] 32.0-32.9, adult; Z79.899 Other long term (current) drug therapy; Z88.6 Allergy status to analgesic agent
CPT/HCPCS: 99285; G0480; J0712; J1644; J2060; J3370; J7040

== ENCOUNTER 2017-06-05 17:41 | Inpatient (IN) | payer MEDICARE, OTHER ==
[~2017-06-05] VITALS: Ht 162.6 cm; Wt 92.5 kg
[2017-06-05] MEDS ORDERED: ACET-784 PO (19:08)
[2017-06-05] MEDS ORDERED: ALBU8HFA IH (19:08)
[2017-06-05] MEDS ORDERED: LORA1TAB3 PO (19:08)
[2017-06-05] MEDS ORDERED: RISP1 PO (19:08)
[2017-06-05] MEDS ORDERED: SODIUM CHLORIDE 0.9% 1,000 ML IV ONE (19:15)
[2017-06-05] MEDS ORDERED: VANCOMYCIN HCL 1 GM/D5% WATER 200 ML IV ONE (19:15)
[2017-06-05 19:41] LABS: BASOPHILS # (AUTO) 0.02 K/uL (0.00-0.20); BASOPHILS % (AUTO) 0.1 % (0.0-2.0); EOSINOPHILS # (AUTO) 0.06 K/uL (0.00-0.70); EOSINOPHILS % (AUTO) 0.53 % (1.0-6.0); LYMPHOCYTES # (AUTO) 1.5 K/uL (1.0-4.8); LYMPHOCYTES % (AUTO) 12.4 % (22.0-44.0); MEAN CORPUSCULAR HEMOGLOBIN 28.2 pg (26.0-34.0); MEAN CORPUSCULAR HGB CONC 32.6 G/dL (31.0-37.0); MEAN CORPUSCULAR VOLUME 86 fL (80-100); MONOCYTES # (AUTO) 0.6 K/uL (0.1-1.0); MONOCYTES % (AUTO) 4.6 % (2.0-9.0); NEUTROPHILS # (AUTO) 9.7 K/uL (1.8-7.7); NEUTROPHILS % (AUTO) 82.3 % (40.0-70.0); PLATELET COUNT (AUTO) 284 K/uL (150-450); RED BLOOD CELL COUNT(AUTO) 4.28 MIL/uL (4.00-5.20); RED CELL DISTRIBUTION WIDTH 13.9 % (11.5-14.5); WHITE BLOOD COUNT (AUTO) 11.8 K/uL (4.5-11.0)
[2017-06-05] MEDS ORDERED: CloNIDine HCL 0.1 MG TABLET PO PRN (19:45)
[2017-06-05] MEDS ORDERED: ZOLPIDEM TARTRATE 5 MG TABLET PO PRN (19:45)
[2017-06-05] MEDS ORDERED: IPRATROPIUM BROMIDE 0.5 MG/2.5 ML NEB SOLUTION NEB PRN (19:45)
[2017-06-05] MEDS ORDERED: ONDANSETRON HCL 4 MG/2 ML VIAL IVP PRN (19:45)
[2017-06-05] MEDS ORDERED: MORPHINE SULFATE 2 MG/ML SYRINGE IVP PRN (19:45)
[2017-06-05] MEDS ORDERED: HYDROCODONE/ACETAMINOPHEN 5-325 MG TABLET PO PRN (19:45)
[2017-06-05] MEDS ORDERED: ALBUTEROL SULFATE 2.5 MG/0.5 ML NEB SOLUTION NEB PRN (19:45)
[2017-06-05 19:56] LABS: ANION GAP 8 mmol/L (8-16); CALCIUM, TOTAL 9.4 mg/dL (8.8-10.5); CARBON DIOXIDE 30 mmol/L (22-29); CHLORIDE 101 mmol/L (98-107); GLOMERULAR FILTR. RATE CALC > 60 mL/min (>60); POTASSIUM 4.2 mmol/L (3.5-5.1); SODIUM SERUM 139 mmol/L (136-145); UREA NITROGEN, BLOOD 15 mg/dL (7-18)
[2017-06-05 20:03] LABS: ALANINE AMINOTRANSFERASE 21 U/L (12-78); ALBUMIN 3.5 g/dL (3.4-5.0); ASPARTATE AMINOTRANSFERASE 19 U/L (15-37); BILIRUBIN,TOTAL 0.2 mg/dL (0.1-1.0)
[2017-06-05] MEDS: RisperiDONE 1 MG TABLET PO SCH (21:12)
[2017-06-05] MEDS: LORazepam 1 MG TABLET PO SCH (21:12)
[2017-06-05] MEDS: HEPARIN SODIUM,PORCINE 5,000 UNITS/ML VIAL SQ SCH (21:12)
[2017-06-06] MEDS ORDERED: VANCOMYCIN HCL 1 GM/D5% WATER 200 ML IV ONE
[2017-06-06 04:46] VITALS: BP 104/58
[2017-06-06] MEDS ORDERED: INFLUENZA VIRUS VACCINE QVS 2017-18 (3YR+)/PF 60 MCG/0.5 ML SYRINGE IM ONE (05:30)
[2017-06-06] MEDS ORDERED: VANCOMYCIN HCL 1 GM/D5% WATER 200 ML IV SCH (07:00)
[2017-06-06 07:28] VITALS: BP 106/66
[2017-06-06] MEDS: VANCOMYCIN HCL 1.5 GM in DEXTROSE 5%-WATER 250 ML IV SCH ×2 (08:00→13:30)
[2017-06-06] MEDS ORDERED: SODIUM CHLORIDE 0.9% 250 ML IV ONE (08:57)
[2017-06-06] MEDS: HEPARIN SODIUM,PORCINE 5,000 UNITS/ML VIAL SQ SCH ×2 (09:00→09:55)
[2017-06-06] MEDS: NIFEdipine 30 MG ER TABLET PO SCH ×2 (09:51→09:58)
[2017-06-06] MEDS: PANTOPRAZOLE SODIUM 40 MG DR TABLET PO SCH ×2 (09:51→09:56)
[2017-06-06] MEDS: LORazepam 1 MG TABLET PO SCH ×4 (09:51→20:16)
[2017-06-06] MEDS: RisperiDONE 1 MG TABLET PO SCH ×3 (09:52→20:16)
[2017-06-06] MEDS ORDERED: HALOPERIDOL LACTATE 5 MG/ML VIAL IM ONE (11:15)
[2017-06-06] MEDS ORDERED: LORazepam 2 MG/ML VIAL IM ONE (11:15)
[2017-06-06] MEDS ORDERED: SODIUM CHLORIDE 0.9% IRRIG BTL 1,000 ML IRRIG ONE (11:20)
[2017-06-06 11:30] VITALS: BP 109/66
[2017-06-06 14:47] LABS: BASOPHILS % (AUTO) 0.7 % (0.0-2.0); HEMATOCRIT 31.9 % (36-46); HEMOGLOBIN 10.9 g/dL (12.0-16.0); LYMPHOCYTES # (AUTO) 1.3 K/uL (1.0-4.8); LYMPHOCYTES % (AUTO) 11.5 % (22.0-44.0); MEAN CORPUSCULAR HGB CONC 34.1 G/dL (31.0-37.0); MEAN CORPUSCULAR VOLUME 85 fL (80-100); MONOCYTES # (AUTO) 0.6 K/uL (0.1-1.0); MONOCYTES % (AUTO) 5.5 % (2.0-9.0); NEUTROPHILS # (AUTO) 9.1 K/uL (1.8-7.7); NEUTROPHILS % (AUTO) 81.3 % (40.0-70.0); PLATELET COUNT (AUTO) 244 K/uL (150-450); RED BLOOD CELL COUNT(AUTO) 3.74 MIL/uL (4.00-5.20); RED CELL DISTRIBUTION WIDTH 13.9 % (11.5-14.5); WHITE BLOOD COUNT (AUTO) 11.2 K/uL (4.5-11.0)
[2017-06-06 15:10] LABS: ALANINE AMINOTRANSFERASE 15 U/L (12-78); ALBUMIN 2.7 g/dL (3.4-5.0); ANION GAP 6 mmol/L (8-16); ASPARTATE AMINOTRANSFERASE 15 U/L (15-37); BILIRUBIN,TOTAL 0.2 mg/dL (0.1-1.0); CALCIUM, TOTAL 8.5 mg/dL (8.8-10.5); CARBON DIOXIDE 29 mmol/L (22-29); CHLORIDE 105 mmol/L (98-107); GLOMERULAR FILTR. RATE CALC > 60 mL/min (>60); PHOSPHORUS 3.7 mg/dL (2.5-4.9); POTASSIUM 4.1 mmol/L (3.5-5.1); SODIUM SERUM 140 mmol/L (136-145); TOTAL PROTEIN, SERUM 6.3 g/dL (6.4-8.2); UREA NITROGEN, BLOOD 12 mg/dL (7-18)
[2017-06-06 15:15] VITALS: BP 105/58
[2017-06-06 19:40] VITALS: BP 110/53
[2017-06-07] VITALS (7 sets, daily range): BP systolic 111–148; BP diastolic 69–84
[2017-06-07 07:04] LABS: ANION GAP 6 mmol/L (8-16); CALCIUM, TOTAL 8.8 mg/dL (8.8-10.5); CARBON DIOXIDE 28 mmol/L (22-29); CHLORIDE 105 mmol/L (98-107); CREATININE 0.71 mg/dL (0.60-1.30); GLOMERULAR FILTR. RATE CALC > 60 mL/min (>60); POTASSIUM 4.3 mmol/L (3.5-5.1); SODIUM SERUM 139 mmol/L (136-145); UREA NITROGEN, BLOOD 11 mg/dL (7-18)
[2017-06-07] MEDS: LORazepam 1 MG TABLET PO SCH ×4 (08:38→20:40)
[2017-06-07] MEDS: RisperiDONE 1 MG TABLET PO SCH ×3 (08:42→20:40)
[2017-06-07] MEDS: HEPARIN SODIUM,PORCINE 5,000 UNITS/ML VIAL SQ SCH ×2 (08:45→20:44)
[2017-06-07] MEDS: NIFEdipine 30 MG ER TABLET PO SCH (08:45)
[2017-06-07] MEDS: MULTIVITAMINS, THERAPEUTIC TABLET PO SCH (08:45)
[2017-06-07] MEDS: PANTOPRAZOLE SODIUM 40 MG DR TABLET PO SCH (08:46)
[2017-06-07] MEDS: ACETAMINOPHEN 325 MG TABLET PO PRN (14:57)
[2017-06-07] MEDS: VANCOMYCIN HCL 1.5 GM in DEXTROSE 5%-WATER 250 ML IV SCH (20:00)
[2017-06-08 04:30] VITALS: BP 129/75
[2017-06-08 07:47] VITALS: BP 149/91
[2017-06-08] MEDS: VANCOMYCIN HCL 1.5 GM in DEXTROSE 5%-WATER 250 ML IV SCH ×2 (08:00→19:45)
[2017-06-08] MEDS: LORazepam 1 MG TABLET PO SCH ×4 (08:22→20:40)
[2017-06-08] MEDS: PANTOPRAZOLE SODIUM 40 MG DR TABLET PO SCH (08:22)
[2017-06-08] MEDS: RisperiDONE 1 MG TABLET PO SCH ×3 (08:22→20:40)
[2017-06-08] MEDS: MULTIVITAMINS, THERAPEUTIC TABLET PO SCH (08:26)
[2017-06-08] MEDS: NIFEdipine 30 MG ER TABLET PO SCH (08:26)
[2017-06-08] MEDS: HEPARIN SODIUM,PORCINE 5,000 UNITS/ML VIAL SQ SCH ×2 (08:26→19:46)
[2017-06-08 13:24] VITALS: BP 147/85
[2017-06-08 14:01] LABS: ANION GAP 7 mmol/L (8-16); CALCIUM, TOTAL 9.2 mg/dL (8.8-10.5); CARBON DIOXIDE 29 mmol/L (22-29); CHLORIDE 102 mmol/L (98-107); CREATININE 0.91 mg/dL (0.60-1.30); GLOMERULAR FILTR. RATE CALC > 60 mL/min (>60); POTASSIUM 4.1 mmol/L (3.5-5.1); SODIUM SERUM 138 mmol/L (136-145); UREA NITROGEN, BLOOD 21 mg/dL (7-18)
[2017-06-08 17:00] VITALS: BP 153/94
[2017-06-08 23:02] VITALS: BP 147/79
[2017-06-09] MEDS: ACETAMINOPHEN 325 MG TABLET PO PRN (01:47)
[2017-06-09 04:00] VITALS: BP 138/72
[2017-06-09 07:20] LABS: ANION GAP 7 mmol/L (8-16); CALCIUM, TOTAL 9.3 mg/dL (8.8-10.5); CARBON DIOXIDE 30 mmol/L (22-29); CHLORIDE 100 mmol/L (98-107); CREATININE 0.77 mg/dL (0.60-1.30); GLOMERULAR FILTR. RATE CALC > 60 mL/min (>60); POTASSIUM 4.6 mmol/L (3.5-5.1); SODIUM SERUM 137 mmol/L (136-145); UREA NITROGEN, BLOOD 16 mg/dL (7-18)
[2017-06-09 07:38] VITALS: BP 151/96
[2017-06-09] MEDS: VANCOMYCIN HCL 1.5 GM in DEXTROSE 5%-WATER 250 ML IV SCH (08:00)
[2017-06-09] MEDS: PANTOPRAZOLE SODIUM 40 MG DR TABLET PO SCH (08:10)
[2017-06-09] MEDS: RisperiDONE 1 MG TABLET PO SCH ×2 (08:11→16:44)
[2017-06-09] MEDS: LORazepam 1 MG TABLET PO SCH ×3 (08:11→16:44)
[2017-06-09] MEDS: NIFEdipine 30 MG ER TABLET PO SCH (08:17)
[2017-06-09] MEDS: HEPARIN SODIUM,PORCINE 5,000 UNITS/ML VIAL SQ SCH (08:17)
[2017-06-09] MEDS: MULTIVITAMINS, THERAPEUTIC TABLET PO SCH (08:17)
[2017-06-09 12:06] VITALS: BP 109/65
[2017-06-09] MEDS ORDERED: LACTOBACILLUS ACIDOPHILUS/BULGARICUS TABLET PO SCH (13:00)
[2017-06-09] MEDS ORDERED: SULFAMETHOX/TRIMETH DS 800-160 MG/TABLET PO SCH (13:00)
[2017-06-09 15:04] VITALS: BP 128/86
[2017-06-09 19:44] VITALS: BP 143/90
== END 2017-06-09 19:50 | DRG 603 ==
LOC: EMS 17:45 → 5S 06-06 03:29 → 6N 06-07 11:50
PROVIDERS: ADMIT Internal Medicine; ATTEND Internal Medicine
DX: L03.116 Cellulitis of left lower limb (principal); F20.0 Paranoid schizophrenia; I10 Essential (primary) hypertension; J44.9 Chronic obstructive pulmonary disease, unspecified; M19.90 Unspecified osteoarthritis, unspecified site; K21.9 Gastro-esophageal reflux disease without esophagitis; B96.4 Proteus (mirabilis) (morganii) as the cause of diseases classified elsewhere; F17.210 Nicotine dependence, cigarettes, uncomplicated; E55.9 Vitamin D deficiency, unspecified; E66.9 Obesity, unspecified; Z91.19 Patient's noncompliance with other medical treatment and regimen; Z88.1 Allergy status to other antibiotic agents; Z88.8 Allergy status to other drugs, medicaments and biological substances; Z28.21 Immunization not carried out because of patient refusal
CPT/HCPCS: 83735; 84100; 87040; 87070; 87081; 87205; 90471; 96365; 96367; 96368; 99285; G0480; J1630; J1644; J2060; J3370; J7030; J7050; J7060

== ENCOUNTER → 2018-07-17 | Outpatient (CLI) | payer MEDICARE, MEDICAID ==
[~2018-07-17] VITALS: Ht 160 cm; Wt 126.2 kg
[~2018-07-17] MED LIST changes: +ACET-784 PO; +ALBU8HFA IH; +ASCO500 PO; +GABA-531 PO; -HALO5 PO; +HYDR25TA PO; +LORA1TAB3 PO; -MV-M1TAB2 PO; +OLAN10TA3 PO; +RISP1 PO; +VALS160T2 PO; +VITAD1000 PO
[2018-07-17 11:00] VITALS: BP 127/86
== END | disposition home or self-care (01) ==
LOC: HBOWC 10:42
PROVIDERS: ATTEND Emergency Medicine
DX: S81.802A Unspecified open wound, left lower leg, initial encounter (principal); I87.2 Venous insufficiency (chronic) (peripheral); J44.9 Chronic obstructive pulmonary disease, unspecified; I10 Essential (primary) hypertension; K21.9 Gastro-esophageal reflux disease without esophagitis; M19.90 Unspecified osteoarthritis, unspecified site; E66.9 Obesity, unspecified; F20.0 Paranoid schizophrenia; F17.210 Nicotine dependence, cigarettes, uncomplicated; F32.9 Major depressive disorder, single episode, unspecified; F41.9 Anxiety disorder, unspecified; Z68.32 Body mass index [BMI] 32.0-32.9, adult; Z79.899 Other long term (current) drug therapy; Z90.49 Acquired absence of other specified parts of digestive tract; W19.XXXA Unspecified fall, initial encounter; Y93.89 Activity, other specified; Y92.89 Other specified places as the place of occurrence of the external cause; Y99.8 Other external cause status
CPT/HCPCS: 87070; G0463; 87205

== ENCOUNTER → 2018-07-24 | Outpatient (CLI) | payer MEDICARE, MEDICAID ==
[~2018-07-24] MED LIST changes: -ALBU8HFA IH; -DSS100 PO; -NIFE30TA5 PO; -PANT40TA25 PO
[2018-07-24 08:00] VITALS: BP 152/90
== END | disposition home or self-care (01) ==
LOC: HBOWC 07:29
PROVIDERS: ATTEND Emergency Medicine
DX: S81.802D Unspecified open wound, left lower leg, subsequent encounter (principal); I87.2 Venous insufficiency (chronic) (peripheral); I83.93 Asymptomatic varicose veins of bilateral lower extremities; J44.9 Chronic obstructive pulmonary disease, unspecified; M19.90 Unspecified osteoarthritis, unspecified site; I10 Essential (primary) hypertension; E55.9 Vitamin D deficiency, unspecified; K21.9 Gastro-esophageal reflux disease without esophagitis; E66.9 Obesity, unspecified; F20.0 Paranoid schizophrenia; F32.9 Major depressive disorder, single episode, unspecified; F41.9 Anxiety disorder, unspecified; F17.210 Nicotine dependence, cigarettes, uncomplicated; Z68.32 Body mass index [BMI] 32.0-32.9, adult; Z90.49 Acquired absence of other specified parts of digestive tract; Z79.899 Other long term (current) drug therapy; X58.XXXD Exposure to other specified factors, subsequent encounter

== ENCOUNTER → 2018-07-31 | Outpatient (CLI) | payer MEDICARE, MEDICAID ==
[2018-07-31 08:32] VITALS: BP 152/78
== END | disposition home or self-care (01) ==
LOC: HBOWC 07:59
PROVIDERS: ATTEND Emergency Medicine
DX: S81.802D Unspecified open wound, left lower leg, subsequent encounter (principal); I87.2 Venous insufficiency (chronic) (peripheral); I83.93 Asymptomatic varicose veins of bilateral lower extremities; K21.9 Gastro-esophageal reflux disease without esophagitis; J44.9 Chronic obstructive pulmonary disease, unspecified; I10 Essential (primary) hypertension; M19.90 Unspecified osteoarthritis, unspecified site; E55.9 Vitamin D deficiency, unspecified; F20.0 Paranoid schizophrenia; E66.9 Obesity, unspecified; F41.9 Anxiety disorder, unspecified; F32.9 Major depressive disorder, single episode, unspecified; F17.210 Nicotine dependence, cigarettes, uncomplicated; Z79.899 Other long term (current) drug therapy; Z68.32 Body mass index [BMI] 32.0-32.9, adult; Z90.49 Acquired absence of other specified parts of digestive tract; W19.XXXD Unspecified fall, subsequent encounter

== ENCOUNTER → 2018-08-07 | Outpatient (CLI) | payer MEDICARE, MEDICAID ==
[~2018-08-07] MED LIST changes: +LIDOCAINE 4% 50 ML SOLUTION TP ONE
[2018-08-07 08:00] VITALS: BP 117/75
== END | disposition home or self-care (01) ==
LOC: HBOWC 07:54
PROVIDERS: ATTEND Emergency Medicine
DX: S81.802D Unspecified open wound, left lower leg, subsequent encounter (principal); I87.2 Venous insufficiency (chronic) (peripheral); B35.3 Tinea pedis; I83.93 Asymptomatic varicose veins of bilateral lower extremities; I10 Essential (primary) hypertension; K21.9 Gastro-esophageal reflux disease without esophagitis; M19.90 Unspecified osteoarthritis, unspecified site; E55.9 Vitamin D deficiency, unspecified; J44.9 Chronic obstructive pulmonary disease, unspecified; E66.9 Obesity, unspecified; F20.0 Paranoid schizophrenia; F41.9 Anxiety disorder, unspecified; F32.9 Major depressive disorder, single episode, unspecified; Z68.32 Body mass index [BMI] 32.0-32.9, adult; F17.210 Nicotine dependence, cigarettes, uncomplicated; Z79.899 Other long term (current) drug therapy; Z90.49 Acquired absence of other specified parts of digestive tract; W19.XXXD Unspecified fall, subsequent encounter
CPT/HCPCS: 97597; 97598

== ENCOUNTER → 2018-08-14 | Outpatient (CLI) | payer MEDICARE, MEDICAID ==
[~2018-08-14] MED LIST changes: -LIDOCAINE 4% 50 ML SOLUTION TP ONE
[2018-08-14 08:24] VITALS: BP 160/92
== END | disposition home or self-care (01) ==
LOC: HBOWC 08:05
PROVIDERS: ATTEND Emergency Medicine
DX: S81.802D Unspecified open wound, left lower leg, subsequent encounter (principal); I87.2 Venous insufficiency (chronic) (peripheral); I83.93 Asymptomatic varicose veins of bilateral lower extremities; Z90.49 Acquired absence of other specified parts of digestive tract; J44.9 Chronic obstructive pulmonary disease, unspecified; I10 Essential (primary) hypertension; K21.9 Gastro-esophageal reflux disease without esophagitis; E55.9 Vitamin D deficiency, unspecified; M19.90 Unspecified osteoarthritis, unspecified site; E66.9 Obesity, unspecified; F41.9 Anxiety disorder, unspecified; F20.9 Schizophrenia, unspecified; F32.9 Major depressive disorder, single episode, unspecified; Z68.32 Body mass index [BMI] 32.0-32.9, adult; F17.210 Nicotine dependence, cigarettes, uncomplicated; Z79.899 Other long term (current) drug therapy; W19.XXXD Unspecified fall, subsequent encounter
CPT/HCPCS: 97597; 97598

== ENCOUNTER → 2018-08-21 | Outpatient (CLI) | payer MEDICARE, MEDICAID ==
[2018-08-21 08:10] VITALS: BP 137/76
== END | disposition home or self-care (01) ==
LOC: HBOWC 08:07
PROVIDERS: ATTEND Emergency Medicine
DX: S81.802D Unspecified open wound, left lower leg, subsequent encounter (principal); I83.93 Asymptomatic varicose veins of bilateral lower extremities; I87.2 Venous insufficiency (chronic) (peripheral); K21.9 Gastro-esophageal reflux disease without esophagitis; J44.9 Chronic obstructive pulmonary disease, unspecified; I10 Essential (primary) hypertension; M19.90 Unspecified osteoarthritis, unspecified site; F20.0 Paranoid schizophrenia; E55.9 Vitamin D deficiency, unspecified; E66.9 Obesity, unspecified; F32.9 Major depressive disorder, single episode, unspecified; Z68.32 Body mass index [BMI] 32.0-32.9, adult; F41.9 Anxiety disorder, unspecified; F17.210 Nicotine dependence, cigarettes, uncomplicated; Z79.899 Other long term (current) drug therapy; Z90.49 Acquired absence of other specified parts of digestive tract; W19.XXXD Unspecified fall, subsequent encounter
CPT/HCPCS: 11042; 11045

== ENCOUNTER → 2018-09-04 | Outpatient (CLI) | payer MEDICARE, MEDICAID ==
[2018-09-04 08:05] VITALS: BP 141/81
== END | disposition home or self-care (01) ==
LOC: HBOWC 07:55
PROVIDERS: ATTEND Emergency Medicine
DX: S81.802D Unspecified open wound, left lower leg, subsequent encounter (principal); I87.2 Venous insufficiency (chronic) (peripheral); I83.93 Asymptomatic varicose veins of bilateral lower extremities; J44.9 Chronic obstructive pulmonary disease, unspecified; I10 Essential (primary) hypertension; K21.9 Gastro-esophageal reflux disease without esophagitis; M19.90 Unspecified osteoarthritis, unspecified site; E55.9 Vitamin D deficiency, unspecified; F20.0 Paranoid schizophrenia; E66.01 Morbid (severe) obesity due to excess calories; F20.9 Schizophrenia, unspecified; F41.9 Anxiety disorder, unspecified; F32.9 Major depressive disorder, single episode, unspecified; F17.210 Nicotine dependence, cigarettes, uncomplicated; Z79.899 Other long term (current) drug therapy; Z68.32 Body mass index [BMI] 32.0-32.9, adult; Z90.49 Acquired absence of other specified parts of digestive tract; X58.XXXD Exposure to other specified factors, subsequent encounter
CPT/HCPCS: 11042; 11045

== ENCOUNTER → 2018-09-12 | Outpatient (CLI) | payer MEDICARE, MEDICAID ==
[2018-09-12 08:00] VITALS: BP 121/76
== END | disposition home or self-care (01) ==
LOC: HBOWC 07:55
PROVIDERS: ATTEND Internal Medicine
DX: S81.802D Unspecified open wound, left lower leg, subsequent encounter (principal); I83.93 Asymptomatic varicose veins of bilateral lower extremities; I87.2 Venous insufficiency (chronic) (peripheral); J44.9 Chronic obstructive pulmonary disease, unspecified; I10 Essential (primary) hypertension; K21.9 Gastro-esophageal reflux disease without esophagitis; M19.90 Unspecified osteoarthritis, unspecified site; E66.01 Morbid (severe) obesity due to excess calories; F20.0 Paranoid schizophrenia; F32.9 Major depressive disorder, single episode, unspecified; F41.9 Anxiety disorder, unspecified; F17.210 Nicotine dependence, cigarettes, uncomplicated; Z79.899 Other long term (current) drug therapy; Z68.32 Body mass index [BMI] 32.0-32.9, adult; Z90.49 Acquired absence of other specified parts of digestive tract; W19.XXXD Unspecified fall, subsequent encounter

== ENCOUNTER → 2018-09-18 | Outpatient (CLI) | payer MEDICARE, MEDICAID ==
[~2018-09-18] MED LIST changes: +LIDOCAINE 4% 50 ML SOLUTION TP ONE
[2018-09-18 08:00] VITALS: BP 122/84
== END | disposition home or self-care (01) ==
LOC: HBOWC 07:49
PROVIDERS: ATTEND Emergency Medicine
DX: S81.802D Unspecified open wound, left lower leg, subsequent encounter (principal); I87.2 Venous insufficiency (chronic) (peripheral); I83.93 Asymptomatic varicose veins of bilateral lower extremities; J44.9 Chronic obstructive pulmonary disease, unspecified; I10 Essential (primary) hypertension; K21.9 Gastro-esophageal reflux disease without esophagitis; M19.90 Unspecified osteoarthritis, unspecified site; E66.01 Morbid (severe) obesity due to excess calories; F20.0 Paranoid schizophrenia; F32.9 Major depressive disorder, single episode, unspecified; F41.9 Anxiety disorder, unspecified; F17.210 Nicotine dependence, cigarettes, uncomplicated; Z68.32 Body mass index [BMI] 32.0-32.9, adult; Z79.899 Other long term (current) drug therapy; Z90.49 Acquired absence of other specified parts of digestive tract; W19.XXXD Unspecified fall, subsequent encounter
CPT/HCPCS: 11042; 11045

== ENCOUNTER → 2018-09-25 | Outpatient (CLI) | payer MEDICARE, MEDICAID ==
[~2018-09-25] MED LIST changes: -LIDOCAINE 4% 50 ML SOLUTION TP ONE
[2018-09-25 08:11] VITALS: BP 117/79
== END | disposition home or self-care (01) ==
LOC: HBOWC 07:57
PROVIDERS: ATTEND Emergency Medicine
DX: S81.802D Unspecified open wound, left lower leg, subsequent encounter (principal); I87.2 Venous insufficiency (chronic) (peripheral); I83.93 Asymptomatic varicose veins of bilateral lower extremities; I10 Essential (primary) hypertension; K21.9 Gastro-esophageal reflux disease without esophagitis; M19.90 Unspecified osteoarthritis, unspecified site; J44.9 Chronic obstructive pulmonary disease, unspecified; E66.9 Obesity, unspecified; F20.0 Paranoid schizophrenia; F17.210 Nicotine dependence, cigarettes, uncomplicated; F41.9 Anxiety disorder, unspecified; F32.9 Major depressive disorder, single episode, unspecified; Z68.32 Body mass index [BMI] 32.0-32.9, adult; Z79.899 Other long term (current) drug therapy; Z90.49 Acquired absence of other specified parts of digestive tract; X58.XXXD Exposure to other specified factors, subsequent encounter
CPT/HCPCS: 11042; 11045; 87070; 87205

== ENCOUNTER → 2018-10-02 | Outpatient (CLI) | payer MEDICARE, MEDICAID ==
[~2018-10-02] MED LIST changes: +LIDOCAINE 4% 50 ML SOLUTION ONE
[2018-10-02 08:00] VITALS: BP 140/90
== END | disposition home or self-care (01) ==
LOC: HBOWC 07:48
PROVIDERS: ATTEND Emergency Medicine
DX: S81.802D Unspecified open wound, left lower leg, subsequent encounter (principal); I87.2 Venous insufficiency (chronic) (peripheral); I83.93 Asymptomatic varicose veins of bilateral lower extremities; I10 Essential (primary) hypertension; K21.9 Gastro-esophageal reflux disease without esophagitis; M19.90 Unspecified osteoarthritis, unspecified site; J44.9 Chronic obstructive pulmonary disease, unspecified; E66.9 Obesity, unspecified; F20.0 Paranoid schizophrenia; F17.210 Nicotine dependence, cigarettes, uncomplicated; F41.9 Anxiety disorder, unspecified; F32.9 Major depressive disorder, single episode, unspecified; Z68.32 Body mass index [BMI] 32.0-32.9, adult; Z79.899 Other long term (current) drug therapy; Z90.49 Acquired absence of other specified parts of digestive tract; X58.XXXD Exposure to other specified factors, subsequent encounter
CPT/HCPCS: 11042; 11045

== ENCOUNTER → 2018-10-09 | Outpatient (CLI) | payer MEDICARE, MEDICAID ==
[~2018-10-09] MED LIST changes: -LIDOCAINE 4% 50 ML SOLUTION ONE; +LIDOCAINE 4% 50 ML SOLUTION TP ONE
[2018-10-09 08:28] VITALS: BP 146/78
== END | disposition home or self-care (01) ==
LOC: HBOWC 07:50
PROVIDERS: ATTEND Emergency Medicine
DX: S81.802D Unspecified open wound, left lower leg, subsequent encounter (principal); I87.2 Venous insufficiency (chronic) (peripheral); I83.93 Asymptomatic varicose veins of bilateral lower extremities; I10 Essential (primary) hypertension; K21.9 Gastro-esophageal reflux disease without esophagitis; M19.90 Unspecified osteoarthritis, unspecified site; J44.9 Chronic obstructive pulmonary disease, unspecified; E66.9 Obesity, unspecified; F20.0 Paranoid schizophrenia; F17.210 Nicotine dependence, cigarettes, uncomplicated; F41.9 Anxiety disorder, unspecified; F32.9 Major depressive disorder, single episode, unspecified; Z68.32 Body mass index [BMI] 32.0-32.9, adult; Z79.899 Other long term (current) drug therapy; Z90.49 Acquired absence of other specified parts of digestive tract; X58.XXXD Exposure to other specified factors, subsequent encounter
CPT/HCPCS: 11042; 11045

== ENCOUNTER → 2018-10-16 | Outpatient (CLI) | payer MEDICARE, MEDICAID ==
[~2018-10-16] MED LIST changes: -LIDOCAINE 4% 50 ML SOLUTION TP ONE
[2018-10-16 08:26] VITALS: BP 153/80
== END | disposition home or self-care (01) ==
LOC: HBOWC 08:09
PROVIDERS: ATTEND Emergency Medicine
DX: S81.802D Unspecified open wound, left lower leg, subsequent encounter (principal); I87.2 Venous insufficiency (chronic) (peripheral); I83.93 Asymptomatic varicose veins of bilateral lower extremities; I10 Essential (primary) hypertension; K21.9 Gastro-esophageal reflux disease without esophagitis; M19.90 Unspecified osteoarthritis, unspecified site; J44.9 Chronic obstructive pulmonary disease, unspecified; E66.9 Obesity, unspecified; F20.0 Paranoid schizophrenia; F17.210 Nicotine dependence, cigarettes, uncomplicated; F41.9 Anxiety disorder, unspecified; F32.9 Major depressive disorder, single episode, unspecified; Z68.32 Body mass index [BMI] 32.0-32.9, adult; Z79.899 Other long term (current) drug therapy; Z90.49 Acquired absence of other specified parts of digestive tract; X58.XXXD Exposure to other specified factors, subsequent encounter
CPT/HCPCS: 11042; 11045

== ENCOUNTER → 2018-10-23 | Outpatient (CLI) | payer MEDICARE, MEDICAID ==
[2018-10-23 08:00] VITALS: BP 138/87
== END | disposition home or self-care (01) ==
LOC: HBOWC 07:52
PROVIDERS: ATTEND Emergency Medicine
DX: S81.802D Unspecified open wound, left lower leg, subsequent encounter (principal); I87.2 Venous insufficiency (chronic) (peripheral); I83.93 Asymptomatic varicose veins of bilateral lower extremities; I10 Essential (primary) hypertension; K21.9 Gastro-esophageal reflux disease without esophagitis; M19.90 Unspecified osteoarthritis, unspecified site; J44.9 Chronic obstructive pulmonary disease, unspecified; E66.9 Obesity, unspecified; F20.0 Paranoid schizophrenia; F17.210 Nicotine dependence, cigarettes, uncomplicated; F41.9 Anxiety disorder, unspecified; F32.9 Major depressive disorder, single episode, unspecified; Z68.32 Body mass index [BMI] 32.0-32.9, adult; Z79.899 Other long term (current) drug therapy; Z90.49 Acquired absence of other specified parts of digestive tract; X58.XXXD Exposure to other specified factors, subsequent encounter
CPT/HCPCS: 11042; 11045

== ENCOUNTER → 2018-10-30 | Outpatient (CLI) | payer MEDICARE, MEDICAID ==
[2018-10-30 08:47] VITALS: BP 151/98
== END | disposition home or self-care (01) ==
LOC: HBOWC 07:56
PROVIDERS: ATTEND Emergency Medicine
DX: S81.802D Unspecified open wound, left lower leg, subsequent encounter (principal); I87.2 Venous insufficiency (chronic) (peripheral); I83.93 Asymptomatic varicose veins of bilateral lower extremities; J44.9 Chronic obstructive pulmonary disease, unspecified; I10 Essential (primary) hypertension; K21.9 Gastro-esophageal reflux disease without esophagitis; M19.90 Unspecified osteoarthritis, unspecified site; E55.9 Vitamin D deficiency, unspecified; E66.01 Morbid (severe) obesity due to excess calories; F20.0 Paranoid schizophrenia; F41.9 Anxiety disorder, unspecified; F17.210 Nicotine dependence, cigarettes, uncomplicated; Z68.32 Body mass index [BMI] 32.0-32.9, adult; Z79.899 Other long term (current) drug therapy; Z90.49 Acquired absence of other specified parts of digestive tract; W19.XXXD Unspecified fall, subsequent encounter
CPT/HCPCS: 11042; 11045

== ENCOUNTER → 2018-11-06 | Outpatient (CLI) | payer MEDICARE, MEDICAID ==
[2018-11-06 08:05] VITALS: BP 144/89
== END | disposition home or self-care (01) ==
LOC: HBOWC 07:49
PROVIDERS: ATTEND Emergency Medicine
DX: S81.802D Unspecified open wound, left lower leg, subsequent encounter (principal); I87.2 Venous insufficiency (chronic) (peripheral); I83.93 Asymptomatic varicose veins of bilateral lower extremities; J44.9 Chronic obstructive pulmonary disease, unspecified; I10 Essential (primary) hypertension; K21.9 Gastro-esophageal reflux disease without esophagitis; M19.90 Unspecified osteoarthritis, unspecified site; E55.9 Vitamin D deficiency, unspecified; E66.01 Morbid (severe) obesity due to excess calories; F20.0 Paranoid schizophrenia; F41.9 Anxiety disorder, unspecified; F17.210 Nicotine dependence, cigarettes, uncomplicated; Z68.32 Body mass index [BMI] 32.0-32.9, adult; Z79.899 Other long term (current) drug therapy; Z90.49 Acquired absence of other specified parts of digestive tract; W19.XXXD Unspecified fall, subsequent encounter
CPT/HCPCS: 11042; 11045

== ENCOUNTER → 2018-11-13 | Outpatient (CLI) | payer MEDICARE, MEDICAID ==
[2018-11-13 08:21] VITALS: BP 127/88
== END | disposition home or self-care (01) ==
LOC: HBOWC 08:02
PROVIDERS: ATTEND Emergency Medicine
DX: S81.802D Unspecified open wound, left lower leg, subsequent encounter (principal); I87.2 Venous insufficiency (chronic) (peripheral); I83.93 Asymptomatic varicose veins of bilateral lower extremities; J44.9 Chronic obstructive pulmonary disease, unspecified; I10 Essential (primary) hypertension; K21.9 Gastro-esophageal reflux disease without esophagitis; M19.90 Unspecified osteoarthritis, unspecified site; E55.9 Vitamin D deficiency, unspecified; E66.01 Morbid (severe) obesity due to excess calories; F20.0 Paranoid schizophrenia; F41.9 Anxiety disorder, unspecified; F17.210 Nicotine dependence, cigarettes, uncomplicated; Z68.32 Body mass index [BMI] 32.0-32.9, adult; Z79.899 Other long term (current) drug therapy; Z90.49 Acquired absence of other specified parts of digestive tract; W19.XXXD Unspecified fall, subsequent encounter
CPT/HCPCS: 11042; 11045

== ENCOUNTER → 2018-11-19 | Outpatient (CLI) | payer MEDICARE, MEDICAID ==
[2018-11-19 08:22] VITALS: BP 136/84
== END | disposition home or self-care (01) ==
LOC: HBOWC 08:07
PROVIDERS: ATTEND Surgery Plastic and Reconstructive Surgery
DX: S81.802D Unspecified open wound, left lower leg, subsequent encounter (principal); I87.2 Venous insufficiency (chronic) (peripheral); I83.93 Asymptomatic varicose veins of bilateral lower extremities; J44.9 Chronic obstructive pulmonary disease, unspecified; I10 Essential (primary) hypertension; K21.9 Gastro-esophageal reflux disease without esophagitis; M19.90 Unspecified osteoarthritis, unspecified site; E55.9 Vitamin D deficiency, unspecified; E66.01 Morbid (severe) obesity due to excess calories; F20.0 Paranoid schizophrenia; F41.9 Anxiety disorder, unspecified; F17.210 Nicotine dependence, cigarettes, uncomplicated; Z68.32 Body mass index [BMI] 32.0-32.9, adult; Z79.899 Other long term (current) drug therapy; Z90.49 Acquired absence of other specified parts of digestive tract; W19.XXXD Unspecified fall, subsequent encounter
CPT/HCPCS: 11042; 11045

== ENCOUNTER → 2018-11-27 | Outpatient (CLI) | payer MEDICARE, MEDICAID ==
[~2018-11-27] MED LIST changes: +LIDOCAINE 4% 50 ML SOLUTION TP ONE
[2018-11-27 08:28] VITALS: BP 144/90
== END | disposition home or self-care (01) ==
LOC: HBOWC 07:50
PROVIDERS: ATTEND Emergency Medicine
DX: S81.802D Unspecified open wound, left lower leg, subsequent encounter (principal); I87.2 Venous insufficiency (chronic) (peripheral); I83.93 Asymptomatic varicose veins of bilateral lower extremities; J44.9 Chronic obstructive pulmonary disease, unspecified; I10 Essential (primary) hypertension; K21.9 Gastro-esophageal reflux disease without esophagitis; M19.90 Unspecified osteoarthritis, unspecified site; E55.9 Vitamin D deficiency, unspecified; E66.01 Morbid (severe) obesity due to excess calories; F20.0 Paranoid schizophrenia; F41.9 Anxiety disorder, unspecified; F17.210 Nicotine dependence, cigarettes, uncomplicated; Z68.32 Body mass index [BMI] 32.0-32.9, adult; Z79.899 Other long term (current) drug therapy; Z90.49 Acquired absence of other specified parts of digestive tract; W19.XXXD Unspecified fall, subsequent encounter
CPT/HCPCS: 11042; 11045

== ENCOUNTER → 2018-12-04 | Outpatient (CLI) | payer MEDICARE, MEDICAID ==
[~2018-12-04] MED LIST changes: -LIDOCAINE 4% 50 ML SOLUTION TP ONE
[2018-12-04 10:44] VITALS: BP 135/94
== END | disposition home or self-care (01) ==
LOC: HBOWC 07:53
PROVIDERS: ATTEND Emergency Medicine
DX: S81.802D Unspecified open wound, left lower leg, subsequent encounter (principal); I87.2 Venous insufficiency (chronic) (peripheral); I83.893 Varicose veins of bilateral lower extremities with other complications; J44.9 Chronic obstructive pulmonary disease, unspecified; I10 Essential (primary) hypertension; K21.9 Gastro-esophageal reflux disease without esophagitis; M19.90 Unspecified osteoarthritis, unspecified site; E66.01 Morbid (severe) obesity due to excess calories; F20.0 Paranoid schizophrenia; F32.9 Major depressive disorder, single episode, unspecified; F41.9 Anxiety disorder, unspecified; F17.210 Nicotine dependence, cigarettes, uncomplicated; Z68.32 Body mass index [BMI] 32.0-32.9, adult; Z79.899 Other long term (current) drug therapy; Z90.49 Acquired absence of other specified parts of digestive tract; W19.XXXD Unspecified fall, subsequent encounter
CPT/HCPCS: 11042; 11045

== ENCOUNTER → 2018-12-11 | Outpatient (CLI) | payer MEDICARE, MEDICAID ==
[~2018-12-11] MED LIST changes: +LIDOCAINE 4% 50 ML SOLUTION TP ONE
[2018-12-11 08:00] VITALS: BP 136/75
== END | disposition home or self-care (01) ==
LOC: HBOWC 07:39
PROVIDERS: ATTEND Emergency Medicine
DX: S81.802D Unspecified open wound, left lower leg, subsequent encounter (principal); I87.2 Venous insufficiency (chronic) (peripheral); I83.93 Asymptomatic varicose veins of bilateral lower extremities; J44.9 Chronic obstructive pulmonary disease, unspecified; I10 Essential (primary) hypertension; K21.9 Gastro-esophageal reflux disease without esophagitis; M19.90 Unspecified osteoarthritis, unspecified site; E55.9 Vitamin D deficiency, unspecified; E66.01 Morbid (severe) obesity due to excess calories; F20.0 Paranoid schizophrenia; F41.9 Anxiety disorder, unspecified; F17.210 Nicotine dependence, cigarettes, uncomplicated; Z68.32 Body mass index [BMI] 32.0-32.9, adult; Z79.899 Other long term (current) drug therapy; Z90.49 Acquired absence of other specified parts of digestive tract; W19.XXXD Unspecified fall, subsequent encounter
CPT/HCPCS: 11042; 11045

== ENCOUNTER → 2018-12-18 | Outpatient (CLI) | payer MEDICARE, MEDICAID ==
[2018-12-18 11:00] VITALS: BP 132/76
== END | disposition home or self-care (01) ==
LOC: HBOWC 10:36
PROVIDERS: ATTEND Emergency Medicine
DX: S81.802D Unspecified open wound, left lower leg, subsequent encounter (principal); I87.2 Venous insufficiency (chronic) (peripheral); I83.93 Asymptomatic varicose veins of bilateral lower extremities; J44.9 Chronic obstructive pulmonary disease, unspecified; I10 Essential (primary) hypertension; K21.9 Gastro-esophageal reflux disease without esophagitis; M19.90 Unspecified osteoarthritis, unspecified site; E55.9 Vitamin D deficiency, unspecified; E66.01 Morbid (severe) obesity due to excess calories; F20.0 Paranoid schizophrenia; F41.9 Anxiety disorder, unspecified; F17.210 Nicotine dependence, cigarettes, uncomplicated; Z68.32 Body mass index [BMI] 32.0-32.9, adult; Z79.899 Other long term (current) drug therapy; Z90.49 Acquired absence of other specified parts of digestive tract; W19.XXXD Unspecified fall, subsequent encounter
CPT/HCPCS: 11042; 11045

== ENCOUNTER → 2018-12-24 | Outpatient (CLI) | payer MEDICARE, MEDICAID ==
[~2018-12-24] MED LIST changes: -LIDOCAINE 4% 50 ML SOLUTION TP ONE
[2018-12-24 12:03] VITALS: BP 145/90
== END | disposition home or self-care (01) ==
LOC: HBOWC 10:47
PROVIDERS: ATTEND Surgery Plastic and Reconstructive Surgery
DX: S81.802D Unspecified open wound, left lower leg, subsequent encounter (principal); I87.2 Venous insufficiency (chronic) (peripheral); I83.93 Asymptomatic varicose veins of bilateral lower extremities; J44.9 Chronic obstructive pulmonary disease, unspecified; I10 Essential (primary) hypertension; K21.9 Gastro-esophageal reflux disease without esophagitis; M19.90 Unspecified osteoarthritis, unspecified site; E55.9 Vitamin D deficiency, unspecified; E66.01 Morbid (severe) obesity due to excess calories; F20.0 Paranoid schizophrenia; F41.9 Anxiety disorder, unspecified; F17.210 Nicotine dependence, cigarettes, uncomplicated; Z68.32 Body mass index [BMI] 32.0-32.9, adult; Z79.899 Other long term (current) drug therapy; Z90.49 Acquired absence of other specified parts of digestive tract; W19.XXXD Unspecified fall, subsequent encounter
CPT/HCPCS: 11042; 11045

== ENCOUNTER → 2018-12-31 | Outpatient (CLI) | payer MEDICARE, MEDICAID ==
[2018-12-31 11:57] VITALS: BP 148/88
== END | disposition home or self-care (01) ==
LOC: HBOWC 10:58
PROVIDERS: ATTEND Surgery Plastic and Reconstructive Surgery
DX: S81.802D Unspecified open wound, left lower leg, subsequent encounter (principal); I83.893 Varicose veins of bilateral lower extremities with other complications; I87.2 Venous insufficiency (chronic) (peripheral); J44.9 Chronic obstructive pulmonary disease, unspecified; M19.90 Unspecified osteoarthritis, unspecified site; K21.9 Gastro-esophageal reflux disease without esophagitis; E66.01 Morbid (severe) obesity due to excess calories; F20.0 Paranoid schizophrenia; F32.9 Major depressive disorder, single episode, unspecified; F17.210 Nicotine dependence, cigarettes, uncomplicated; F41.9 Anxiety disorder, unspecified; Z68.32 Body mass index [BMI] 32.0-32.9, adult; Z79.899 Other long term (current) drug therapy; Z90.49 Acquired absence of other specified parts of digestive tract; W19.XXXD Unspecified fall, subsequent encounter
CPT/HCPCS: 11042; 11045

== ENCOUNTER → 2019-01-15 | Outpatient (CLI) | payer MEDICARE, MEDICAID ==
[2019-01-15 11:01] VITALS: BP 143/89
== END | disposition home or self-care (01) ==
LOC: HBOWC 10:58
PROVIDERS: ATTEND Emergency Medicine
DX: S81.802D Unspecified open wound, left lower leg, subsequent encounter (principal); I87.2 Venous insufficiency (chronic) (peripheral); I83.893 Varicose veins of bilateral lower extremities with other complications; J44.9 Chronic obstructive pulmonary disease, unspecified; K21.9 Gastro-esophageal reflux disease without esophagitis; M19.90 Unspecified osteoarthritis, unspecified site; I10 Essential (primary) hypertension; F20.0 Paranoid schizophrenia; F32.9 Major depressive disorder, single episode, unspecified; F41.9 Anxiety disorder, unspecified; F17.210 Nicotine dependence, cigarettes, uncomplicated; Z68.32 Body mass index [BMI] 32.0-32.9, adult; Z90.49 Acquired absence of other specified parts of digestive tract; W19.XXXD Unspecified fall, subsequent encounter
CPT/HCPCS: 11042; 11045

== ENCOUNTER → 2019-01-22 | Outpatient (CLI) | payer MEDICARE ==
[~2019-01-22] MED LIST changes: +LIDOCAINE 4% 50 ML SOLUTION TP ONE
[2019-01-22 11:51] VITALS: BP 146/77
== END | disposition home or self-care (01) ==
LOC: HBOWC 10:47
PROVIDERS: ATTEND Emergency Medicine
DX: S81.802D Unspecified open wound, left lower leg, subsequent encounter (principal); I87.2 Venous insufficiency (chronic) (peripheral); I83.893 Varicose veins of bilateral lower extremities with other complications; J44.9 Chronic obstructive pulmonary disease, unspecified; K21.9 Gastro-esophageal reflux disease without esophagitis; M19.90 Unspecified osteoarthritis, unspecified site; I10 Essential (primary) hypertension; F20.0 Paranoid schizophrenia; F32.9 Major depressive disorder, single episode, unspecified; F41.9 Anxiety disorder, unspecified; F17.210 Nicotine dependence, cigarettes, uncomplicated; Z68.32 Body mass index [BMI] 32.0-32.9, adult; Z90.49 Acquired absence of other specified parts of digestive tract; W19.XXXD Unspecified fall, subsequent encounter
CPT/HCPCS: 11042; 11045

== ENCOUNTER → 2019-01-29 | Outpatient (CLI) | payer MEDICARE ==
[2019-01-29 11:10] VITALS: BP 111/61
== END | disposition home or self-care (01) ==
LOC: HBOWC 10:51
PROVIDERS: ATTEND Emergency Medicine
DX: S81.802D Unspecified open wound, left lower leg, subsequent encounter (principal); I83.893 Varicose veins of bilateral lower extremities with other complications; J44.9 Chronic obstructive pulmonary disease, unspecified; I10 Essential (primary) hypertension; B35.1 Tinea unguium; K21.9 Gastro-esophageal reflux disease without esophagitis; M19.90 Unspecified osteoarthritis, unspecified site; I87.2 Venous insufficiency (chronic) (peripheral); E66.01 Morbid (severe) obesity due to excess calories; F20.0 Paranoid schizophrenia; E55.9 Vitamin D deficiency, unspecified; F32.9 Major depressive disorder, single episode, unspecified; F41.9 Anxiety disorder, unspecified; F17.210 Nicotine dependence, cigarettes, uncomplicated; Z68.32 Body mass index [BMI] 32.0-32.9, adult; Z79.899 Other long term (current) drug therapy; Z90.49 Acquired absence of other specified parts of digestive tract; W19.XXXD Unspecified fall, subsequent encounter
CPT/HCPCS: 11042; 11045

== ENCOUNTER → 2019-02-05 | Outpatient (CLI) | payer MEDICARE, OTHER ==
[~2019-02-05] MED LIST changes: +CHOL100018 PO; +LIDOCAINE 2% 5 ML JELLY TP ONE; -LIDOCAINE 4% 50 ML SOLUTION TP ONE; +LORA-1000 PO; -LORA1TAB3 PO; -VITAD1000 PO
[2019-02-05 11:00] VITALS: BP 121/71
== END | disposition home or self-care (01) ==
LOC: HBOWC 10:58
PROVIDERS: ATTEND Emergency Medicine
DX: S81.802D Unspecified open wound, left lower leg, subsequent encounter (principal); I83.893 Varicose veins of bilateral lower extremities with other complications; J44.9 Chronic obstructive pulmonary disease, unspecified; I10 Essential (primary) hypertension; B35.1 Tinea unguium; K21.9 Gastro-esophageal reflux disease without esophagitis; M19.90 Unspecified osteoarthritis, unspecified site; E66.01 Morbid (severe) obesity due to excess calories; F20.0 Paranoid schizophrenia; F32.9 Major depressive disorder, single episode, unspecified; F17.210 Nicotine dependence, cigarettes, uncomplicated; Z68.32 Body mass index [BMI] 32.0-32.9, adult; Z79.899 Other long term (current) drug therapy; Z90.49 Acquired absence of other specified parts of digestive tract; W19.XXXD Unspecified fall, subsequent encounter
CPT/HCPCS: 11042; 11045

== ENCOUNTER → 2019-02-12 | Outpatient (CLI) | payer MEDICARE ==
[~2019-02-12] MED LIST changes: -CHOL100018 PO; -LIDOCAINE 2% 5 ML JELLY TP ONE; +LIDOCAINE 4% 50 ML SOLUTION ONE; -LORA-1000 PO; +LORA1TAB3 PO; +VITAD1000 PO
[2019-02-12 11:20] VITALS: BP 138/75
== END | disposition home or self-care (01) ==
LOC: HBOWC 11:08
PROVIDERS: ATTEND Emergency Medicine
DX: S81.802D Unspecified open wound, left lower leg, subsequent encounter (principal); I83.893 Varicose veins of bilateral lower extremities with other complications; J44.9 Chronic obstructive pulmonary disease, unspecified; I10 Essential (primary) hypertension; B35.1 Tinea unguium; K21.9 Gastro-esophageal reflux disease without esophagitis; M19.90 Unspecified osteoarthritis, unspecified site; I87.2 Venous insufficiency (chronic) (peripheral); E66.01 Morbid (severe) obesity due to excess calories; F20.0 Paranoid schizophrenia; E55.9 Vitamin D deficiency, unspecified; F32.9 Major depressive disorder, single episode, unspecified; F41.9 Anxiety disorder, unspecified; F17.210 Nicotine dependence, cigarettes, uncomplicated; Z68.32 Body mass index [BMI] 32.0-32.9, adult; Z79.899 Other long term (current) drug therapy; Z90.49 Acquired absence of other specified parts of digestive tract; W19.XXXD Unspecified fall, subsequent encounter
CPT/HCPCS: 11042; 11045

== ENCOUNTER → 2019-02-19 | Outpatient (CLI) | payer MEDICARE ==
[~2019-02-19] MED LIST changes: +CHOL100018 PO; -LIDOCAINE 4% 50 ML SOLUTION ONE; -VITAD1000 PO
[2019-02-19 11:43] VITALS: BP 129/89
== END | disposition home or self-care (01) ==
LOC: HBOWC 10:43
PROVIDERS: ATTEND Emergency Medicine
DX: S81.802D Unspecified open wound, left lower leg, subsequent encounter (principal); I87.2 Venous insufficiency (chronic) (peripheral); F20.0 Paranoid schizophrenia; J44.9 Chronic obstructive pulmonary disease, unspecified; I10 Essential (primary) hypertension; B35.1 Tinea unguium; K21.9 Gastro-esophageal reflux disease without esophagitis; M19.90 Unspecified osteoarthritis, unspecified site; E66.01 Morbid (severe) obesity due to excess calories; F32.9 Major depressive disorder, single episode, unspecified; F41.9 Anxiety disorder, unspecified; F17.210 Nicotine dependence, cigarettes, uncomplicated; Z68.32 Body mass index [BMI] 32.0-32.9, adult; Z90.49 Acquired absence of other specified parts of digestive tract; Z79.899 Other long term (current) drug therapy; X58.XXXD Exposure to other specified factors, subsequent encounter
CPT/HCPCS: 11042; 11045

== ENCOUNTER → 2019-02-26 | Outpatient (CLI) | payer MEDICARE ==
[~2019-02-26] MED LIST changes: +LIDOCAINE 4% 50 ML SOLUTION TP ONE
[2019-02-26 11:20] VITALS: BP 130/70
== END | disposition home or self-care (01) ==
LOC: HBOWC 11:12
PROVIDERS: ATTEND Emergency Medicine
DX: S81.802D Unspecified open wound, left lower leg, subsequent encounter (principal); I87.2 Venous insufficiency (chronic) (peripheral); F20.0 Paranoid schizophrenia; J44.9 Chronic obstructive pulmonary disease, unspecified; I10 Essential (primary) hypertension; B35.1 Tinea unguium; K21.9 Gastro-esophageal reflux disease without esophagitis; M19.90 Unspecified osteoarthritis, unspecified site; E66.01 Morbid (severe) obesity due to excess calories; F32.9 Major depressive disorder, single episode, unspecified; F41.9 Anxiety disorder, unspecified; F17.210 Nicotine dependence, cigarettes, uncomplicated; Z90.49 Acquired absence of other specified parts of digestive tract; Z79.899 Other long term (current) drug therapy; X58.XXXD Exposure to other specified factors, subsequent encounter
CPT/HCPCS: 11042; 11045

== ENCOUNTER → 2019-03-05 | Outpatient (CLI) | payer MEDICARE ==
[~2019-03-05] MED LIST changes: -LIDOCAINE 4% 50 ML SOLUTION TP ONE
[2019-03-05 11:20] VITALS: BP 125/80
== END | disposition home or self-care (01) ==
LOC: HBOWC 10:50
PROVIDERS: ATTEND Emergency Medicine
DX: S81.802D Unspecified open wound, left lower leg, subsequent encounter (principal); I87.2 Venous insufficiency (chronic) (peripheral); F20.0 Paranoid schizophrenia; J44.9 Chronic obstructive pulmonary disease, unspecified; I10 Essential (primary) hypertension; B35.1 Tinea unguium; K21.9 Gastro-esophageal reflux disease without esophagitis; M19.90 Unspecified osteoarthritis, unspecified site; E66.01 Morbid (severe) obesity due to excess calories; F32.9 Major depressive disorder, single episode, unspecified; F41.9 Anxiety disorder, unspecified; F17.210 Nicotine dependence, cigarettes, uncomplicated; Z90.49 Acquired absence of other specified parts of digestive tract; Z79.899 Other long term (current) drug therapy; X58.XXXD Exposure to other specified factors, subsequent encounter
CPT/HCPCS: 11042; 11045

== ENCOUNTER → 2019-03-11 | Outpatient (CLI) | payer MEDICARE ==
[2019-03-11 11:47] VITALS: BP 134/90
== END | disposition home or self-care (01) ==
LOC: HBOWC 11:07
PROVIDERS: ATTEND Surgery Plastic and Reconstructive Surgery
DX: S81.802D Unspecified open wound, left lower leg, subsequent encounter (principal); I83.893 Varicose veins of bilateral lower extremities with other complications; F20.0 Paranoid schizophrenia; J44.9 Chronic obstructive pulmonary disease, unspecified; I10 Essential (primary) hypertension; B35.1 Tinea unguium; K21.9 Gastro-esophageal reflux disease without esophagitis; M19.90 Unspecified osteoarthritis, unspecified site; E66.01 Morbid (severe) obesity due to excess calories; F32.9 Major depressive disorder, single episode, unspecified; F41.9 Anxiety disorder, unspecified; F17.210 Nicotine dependence, cigarettes, uncomplicated; Z90.49 Acquired absence of other specified parts of digestive tract; Z79.899 Other long term (current) drug therapy; X58.XXXD Exposure to other specified factors, subsequent encounter; Z68.32 Body mass index [BMI] 32.0-32.9, adult
CPT/HCPCS: 11042; 11045

== ENCOUNTER → 2019-03-19 | Outpatient (CLI) | payer MEDICARE ==
[~2019-03-19] MED LIST changes: +LORA-1000 PO; -LORA1TAB3 PO
[2019-03-19 11:30] VITALS: BP 132/81
== END | disposition home or self-care (01) ==
LOC: HBOWC 10:51
PROVIDERS: ATTEND Emergency Medicine
DX: S81.802D Unspecified open wound, left lower leg, subsequent encounter (principal); I83.893 Varicose veins of bilateral lower extremities with other complications; F20.0 Paranoid schizophrenia; J44.9 Chronic obstructive pulmonary disease, unspecified; I10 Essential (primary) hypertension; B35.1 Tinea unguium; K21.9 Gastro-esophageal reflux disease without esophagitis; M19.90 Unspecified osteoarthritis, unspecified site; E66.01 Morbid (severe) obesity due to excess calories; B35.3 Tinea pedis; F41.8 Other specified anxiety disorders; F17.210 Nicotine dependence, cigarettes, uncomplicated; Z90.49 Acquired absence of other specified parts of digestive tract; Z79.899 Other long term (current) drug therapy; X58.XXXD Exposure to other specified factors, subsequent encounter; Z68.32 Body mass index [BMI] 32.0-32.9, adult
CPT/HCPCS: 11042; 11045

== ENCOUNTER → 2019-03-27 | Outpatient (CLI) | payer MEDICARE ==
[2019-03-27 11:10] VITALS: BP 129/83
== END | disposition home or self-care (01) ==
LOC: HBOWC 10:37
PROVIDERS: ATTEND Internal Medicine
DX: S81.802D Unspecified open wound, left lower leg, subsequent encounter (principal); I83.893 Varicose veins of bilateral lower extremities with other complications; F20.0 Paranoid schizophrenia; J44.9 Chronic obstructive pulmonary disease, unspecified; I10 Essential (primary) hypertension; B35.1 Tinea unguium; K21.9 Gastro-esophageal reflux disease without esophagitis; M19.90 Unspecified osteoarthritis, unspecified site; E66.01 Morbid (severe) obesity due to excess calories; B35.3 Tinea pedis; F41.8 Other specified anxiety disorders; F17.210 Nicotine dependence, cigarettes, uncomplicated; Z90.49 Acquired absence of other specified parts of digestive tract; Z79.899 Other long term (current) drug therapy; X58.XXXD Exposure to other specified factors, subsequent encounter; Z68.32 Body mass index [BMI] 32.0-32.9, adult
CPT/HCPCS: 11042; 11045

== ENCOUNTER → 2019-04-02 | Outpatient (CLI) | payer MEDICARE ==
[~2019-04-02] MED LIST changes: +LIDOCAINE 4% 50 ML SOLUTION TP ONE; -LORA-1000 PO; +LORA1TAB3 PO
[2019-04-02 11:40] VITALS: BP 121/80
== END | disposition home or self-care (01) ==
LOC: HBOWC 11:29
PROVIDERS: ATTEND Emergency Medicine
DX: S81.802D Unspecified open wound, left lower leg, subsequent encounter (principal); I83.893 Varicose veins of bilateral lower extremities with other complications; F20.0 Paranoid schizophrenia; J44.9 Chronic obstructive pulmonary disease, unspecified; I10 Essential (primary) hypertension; B35.1 Tinea unguium; K21.9 Gastro-esophageal reflux disease without esophagitis; M19.90 Unspecified osteoarthritis, unspecified site; E66.01 Morbid (severe) obesity due to excess calories; B35.3 Tinea pedis; F41.8 Other specified anxiety disorders; F17.210 Nicotine dependence, cigarettes, uncomplicated; Z90.49 Acquired absence of other specified parts of digestive tract; Z79.899 Other long term (current) drug therapy; X58.XXXD Exposure to other specified factors, subsequent encounter; Z68.32 Body mass index [BMI] 32.0-32.9, adult
CPT/HCPCS: 11042; 11045

== ENCOUNTER → 2019-04-16 | Outpatient (CLI) | payer MEDICARE, MEDICAID ==
[~2019-04-16] MED LIST changes: +LORA-1000 PO; -LORA1TAB3 PO
== END | disposition home or self-care (01) ==
LOC: HBOWC 11:05
PROVIDERS: ATTEND Emergency Medicine
DX: S81.802D Unspecified open wound, left lower leg, subsequent encounter (principal); I83.893 Varicose veins of bilateral lower extremities with other complications; F20.0 Paranoid schizophrenia; J44.9 Chronic obstructive pulmonary disease, unspecified; I10 Essential (primary) hypertension; B35.1 Tinea unguium; K21.9 Gastro-esophageal reflux disease without esophagitis; M19.90 Unspecified osteoarthritis, unspecified site; E66.01 Morbid (severe) obesity due to excess calories; B35.3 Tinea pedis; F32.9 Major depressive disorder, single episode, unspecified; F41.9 Anxiety disorder, unspecified; F17.210 Nicotine dependence, cigarettes, uncomplicated; Z90.49 Acquired absence of other specified parts of digestive tract; Z79.899 Other long term (current) drug therapy; Z68.42 Body mass index [BMI] 45.0-49.9, adult; X58.XXXD Exposure to other specified factors, subsequent encounter
CPT/HCPCS: 11042

== ENCOUNTER → 2019-04-22 | Outpatient (CLI) | payer MEDICARE, MEDICAID ==
[~2019-04-22] MED LIST changes: +LIDOCAINE 4% 50 ML SOLUTION ONE; -LIDOCAINE 4% 50 ML SOLUTION TP ONE
== END | disposition home or self-care (01) ==
LOC: HBOWC 11:17
PROVIDERS: ATTEND Surgery Plastic and Reconstructive Surgery
DX: S81.802D Unspecified open wound, left lower leg, subsequent encounter (principal); I83.893 Varicose veins of bilateral lower extremities with other complications; F20.0 Paranoid schizophrenia; J44.9 Chronic obstructive pulmonary disease, unspecified; I10 Essential (primary) hypertension; B35.1 Tinea unguium; K21.9 Gastro-esophageal reflux disease without esophagitis; M19.90 Unspecified osteoarthritis, unspecified site; E66.01 Morbid (severe) obesity due to excess calories; B35.3 Tinea pedis; F32.9 Major depressive disorder, single episode, unspecified; F41.8 Other specified anxiety disorders; F17.210 Nicotine dependence, cigarettes, uncomplicated; Z90.49 Acquired absence of other specified parts of digestive tract; Z79.899 Other long term (current) drug therapy; Z68.42 Body mass index [BMI] 45.0-49.9, adult; W19.XXXD Unspecified fall, subsequent encounter
CPT/HCPCS: 11043; 11046

== ENCOUNTER → 2019-05-07 | Outpatient (CLI) | payer MEDICARE, MEDICAID ==
[~2019-05-07] MED LIST changes: -LIDOCAINE 4% 50 ML SOLUTION ONE
== END | disposition home or self-care (01) ==
LOC: HBOWC 10:50
PROVIDERS: ATTEND Emergency Medicine
DX: S81.802D Unspecified open wound, left lower leg, subsequent encounter (principal); I83.893 Varicose veins of bilateral lower extremities with other complications; F20.0 Paranoid schizophrenia; J44.9 Chronic obstructive pulmonary disease, unspecified; I10 Essential (primary) hypertension; B35.1 Tinea unguium; K21.9 Gastro-esophageal reflux disease without esophagitis; M19.90 Unspecified osteoarthritis, unspecified site; E66.01 Morbid (severe) obesity due to excess calories; B35.3 Tinea pedis; F32.9 Major depressive disorder, single episode, unspecified; F41.8 Other specified anxiety disorders; F17.210 Nicotine dependence, cigarettes, uncomplicated; Z90.49 Acquired absence of other specified parts of digestive tract; Z79.899 Other long term (current) drug therapy; Z68.42 Body mass index [BMI] 45.0-49.9, adult; W19.XXXD Unspecified fall, subsequent encounter
CPT/HCPCS: 11042; 11045

== ENCOUNTER → 2019-05-13 | Outpatient (CLI) | payer MEDICARE, MEDICAID ==
[~2019-05-13] MED LIST changes: +ACETAMINOPHEN 325 MG TABLET PO ONE; +LIDOCAINE 4% 50 ML SOLUTION TP ONE
== END | disposition home or self-care (01) ==
LOC: HBOWC 10:14
PROVIDERS: ATTEND Surgery Plastic and Reconstructive Surgery
DX: S81.802D Unspecified open wound, left lower leg, subsequent encounter (principal); I83.893 Varicose veins of bilateral lower extremities with other complications; F20.0 Paranoid schizophrenia; J44.9 Chronic obstructive pulmonary disease, unspecified; I10 Essential (primary) hypertension; K21.9 Gastro-esophageal reflux disease without esophagitis; M19.90 Unspecified osteoarthritis, unspecified site; E66.01 Morbid (severe) obesity due to excess calories; F32.9 Major depressive disorder, single episode, unspecified; F41.8 Other specified anxiety disorders; B35.3 Tinea pedis; B35.1 Tinea unguium; F17.210 Nicotine dependence, cigarettes, uncomplicated; Z90.49 Acquired absence of other specified parts of digestive tract; Z79.899 Other long term (current) drug therapy; Z68.42 Body mass index [BMI] 45.0-49.9, adult; W19.XXXD Unspecified fall, subsequent encounter
CPT/HCPCS: 11043; 11046

== ENCOUNTER → 2019-05-21 | Outpatient (CLI) | payer MEDICARE, MEDICAID ==
[~2019-05-21] MED LIST changes: +ACETAMINOPHEN 325 MG TABLET ONE; -ACETAMINOPHEN 325 MG TABLET PO ONE; +LIDOCAINE 4% 50 ML SOLUTION ONE; -LIDOCAINE 4% 50 ML SOLUTION TP ONE; +SILVER NITRATE APPLICATOR 1 EA STICK TP ONE
== END | disposition home or self-care (01) ==
LOC: HBOWC 10:17
PROVIDERS: ATTEND Emergency Medicine
DX: S81.802D Unspecified open wound, left lower leg, subsequent encounter (principal); I83.893 Varicose veins of bilateral lower extremities with other complications; F20.0 Paranoid schizophrenia; J44.9 Chronic obstructive pulmonary disease, unspecified; I10 Essential (primary) hypertension; K21.9 Gastro-esophageal reflux disease without esophagitis; M19.90 Unspecified osteoarthritis, unspecified site; E66.01 Morbid (severe) obesity due to excess calories; F32.9 Major depressive disorder, single episode, unspecified; F41.8 Other specified anxiety disorders; D35.3 Benign neoplasm of craniopharyngeal duct; B35.1 Tinea unguium; F17.210 Nicotine dependence, cigarettes, uncomplicated; Z90.49 Acquired absence of other specified parts of digestive tract; Z79.899 Other long term (current) drug therapy; Z68.42 Body mass index [BMI] 45.0-49.9, adult; W19.XXXD Unspecified fall, subsequent encounter
CPT/HCPCS: 11042; 11045

== ENCOUNTER → 2019-05-28 | Outpatient (CLI) | payer MEDICARE, MEDICAID ==
[~2019-05-28] MED LIST changes: -ACETAMINOPHEN 325 MG TABLET ONE; -LIDOCAINE 4% 50 ML SOLUTION ONE; -SILVER NITRATE APPLICATOR 1 EA STICK TP ONE
== END | disposition home or self-care (01) ==
LOC: HBOWC 10:42
PROVIDERS: ATTEND Emergency Medicine
DX: S81.802D Unspecified open wound, left lower leg, subsequent encounter (principal); I83.893 Varicose veins of bilateral lower extremities with other complications; F20.0 Paranoid schizophrenia; J44.9 Chronic obstructive pulmonary disease, unspecified; I10 Essential (primary) hypertension; K21.9 Gastro-esophageal reflux disease without esophagitis; M19.90 Unspecified osteoarthritis, unspecified site; E66.01 Morbid (severe) obesity due to excess calories; F32.9 Major depressive disorder, single episode, unspecified; F41.8 Other specified anxiety disorders; B35.3 Tinea pedis; B35.1 Tinea unguium; F17.210 Nicotine dependence, cigarettes, uncomplicated; Z90.49 Acquired absence of other specified parts of digestive tract; Z79.899 Other long term (current) drug therapy; Z68.42 Body mass index [BMI] 45.0-49.9, adult; W19.XXXD Unspecified fall, subsequent encounter
CPT/HCPCS: 11042; 11045

== ENCOUNTER → 2019-06-04 | Outpatient (CLI) | payer MEDICARE, MEDICAID ==
[~2019-06-04] MED LIST changes: +LIDOCAINE 4% 50 ML SOLUTION TP ONE
== END | disposition home or self-care (01) ==
LOC: HBOWC 10:34
PROVIDERS: ATTEND Emergency Medicine
DX: S81.802D Unspecified open wound, left lower leg, subsequent encounter (principal); I83.893 Varicose veins of bilateral lower extremities with other complications; F20.0 Paranoid schizophrenia; J44.9 Chronic obstructive pulmonary disease, unspecified; I10 Essential (primary) hypertension; K21.9 Gastro-esophageal reflux disease without esophagitis; M19.90 Unspecified osteoarthritis, unspecified site; E66.01 Morbid (severe) obesity due to excess calories; F32.9 Major depressive disorder, single episode, unspecified; F41.8 Other specified anxiety disorders; D35.3 Benign neoplasm of craniopharyngeal duct; B35.1 Tinea unguium; B35.3 Tinea pedis; F17.210 Nicotine dependence, cigarettes, uncomplicated; Z90.49 Acquired absence of other specified parts of digestive tract; Z79.899 Other long term (current) drug therapy; Z68.42 Body mass index [BMI] 45.0-49.9, adult; W19.XXXD Unspecified fall, subsequent encounter
CPT/HCPCS: 11042; 11045

== ENCOUNTER 2020-03-16 16:36 | Inpatient (IN) | payer MEDICARE, MEDICAID ==
[~2020-03-16 16:36] MED LIST changes: -ACET-784 PO; +GABA-1181 PO; -GABA-531 PO; +HYDR-1475 PO; -HYDR25TA PO; -LIDOCAINE 4% 50 ML SOLUTION TP ONE; -LORA-1000 PO; -OLAN10TA3 PO; -RISP1 PO; +RISP4TAB73 PO
[2020-03-16] MEDS ORDERED: HALOPERIDOL 5 MG TABLET PO PRN (18:45)
[2020-03-16] MEDS ORDERED: LORazepam 2 MG TABLET PO PRN (18:45)
[2020-03-16] MEDS ORDERED: ZOLPIDEM TARTRATE 10 MG TABLET PO PRN (18:45)
[2020-03-16] MEDS: RisperiDONE 4 MG TABLET PO SCH (18:48)
[2020-03-16 19:32] VITALS: BP 116/69
[2020-03-17 01:01] VITALS: BP 111/71
[2020-03-17] MEDS ORDERED: PETROLATUM,WHITE 28 GM JELLY TP PRN (08:00)
[2020-03-17] MEDS ORDERED: MAG HYDROX/AL HYDROX/SIMETH ES 30 ML SUSPENSION UDCUP PO PRN (08:00)
[2020-03-17] MEDS ORDERED: ONDANSETRON HCL 4 MG TABLET PO PRN (08:00)
[2020-03-17] MEDS ORDERED: ALBUTEROL SULFATE HFA 90 MCG/PUFF 8 GM INHALER IH PRN (08:00)
[2020-03-17] MEDS ORDERED: BACITRACIN 28 GM OINTMENT TP PRN (08:00)
[2020-03-17] MEDS ORDERED: BENZOCAINE/MENTHOL LOZENGE PO PRN (08:00)
[2020-03-17] MEDS ORDERED: ACETAMINOPHEN 325 MG TABLET PO PRN (08:00)
[2020-03-17] MEDS ORDERED: OMEPRAZOLE 20 MG CAPSULE PO PRN (08:00)
[2020-03-17] MEDS ORDERED: MAGNESIUM HYDROXIDE SUSPENSION 30 ML UDCUP PO PRN (08:00)
[2020-03-17] MEDS ORDERED: LOPERAMIDE HCL 2 MG CAPSULE PO PRN (08:00)
[2020-03-17] MEDS ORDERED: CloNIDine HCL 0.1 MG TABLET PO PRN (08:00)
[2020-03-17] MEDS ORDERED: DOCUSATE SODIUM 100 MG CAPSULE PO PRN (08:00)
[2020-03-17] MEDS: RisperiDONE 4 MG TABLET PO SCH ×2 (08:37→16:28)
[2020-03-17 16:01] VITALS: BP 125/65
[2020-03-18 06:10] VITALS: BP 118/66
[2020-03-18 08:20] VITALS: BP 137/68
[2020-03-18] MEDS: RisperiDONE 4 MG TABLET PO SCH ×2 (09:54→16:32)
[2020-03-18 16:04] VITALS: BP 136/55
[2020-03-19 07:20] VITALS: BP 128/62
[2020-03-19] MEDS: RisperiDONE 4 MG TABLET PO SCH ×2 (08:17→16:20)
[2020-03-19 16:01] VITALS: BP 109/71
[2020-03-20 01:25] VITALS: BP 104/73
[2020-03-20 08:25] VITALS: BP 110/72
[2020-03-20] MEDS: RisperiDONE 4 MG TABLET PO SCH ×2 (09:15→16:52)
[2020-03-20 17:16] VITALS: BP 112/72
[2020-03-21 00:38] VITALS: BP 115/63
[2020-03-21 07:40] VITALS: BP 110/69
[2020-03-21] MEDS: ZINC SULFATE 220 MG CAPSULE PO SCH (08:13)
[2020-03-21] MEDS: ASCORBIC ACID 500 MG TABLET PO SCH (08:13)
[2020-03-21] MEDS: MULTIVITAMINS WITH MINERALS, THERAPEUTIC TABLET PO SCH (08:13)
[2020-03-21] MEDS: RisperiDONE 4 MG TABLET PO SCH ×2 (08:13→17:00)
[2020-03-21 08:39] VITALS: BP 110/69
[2020-03-22 04:25] VITALS: BP 115/70
[2020-03-22] MEDS: MULTIVITAMINS WITH MINERALS, THERAPEUTIC TABLET PO SCH (09:00)
[2020-03-22] MEDS: ASCORBIC ACID 500 MG TABLET PO SCH (09:00)
[2020-03-22] MEDS: RisperiDONE 4 MG TABLET PO SCH ×2 (09:00→16:05)
[2020-03-22] MEDS: ZINC SULFATE 220 MG CAPSULE PO SCH (09:00)
[2020-03-22 17:26] VITALS: BP 135/79
[2020-03-23 01:45] VITALS: BP 122/80
[2020-03-23 08:02] VITALS: BP 115/68
[2020-03-23] MEDS: RisperiDONE 4 MG TABLET PO SCH ×2 (08:04→16:42)
[2020-03-23] MEDS: ZINC SULFATE 220 MG CAPSULE PO SCH (08:40)
[2020-03-23] MEDS: ASCORBIC ACID 500 MG TABLET PO SCH (08:40)
[2020-03-23] MEDS: MULTIVITAMINS WITH MINERALS, THERAPEUTIC TABLET PO SCH (08:40)
[2020-03-23 16:02] VITALS: BP 142/87
[2020-03-24 01:35] VITALS: BP 137/77
[2020-03-24 08:33] VITALS: BP 110/57
[2020-03-24] MEDS: MULTIVITAMINS WITH MINERALS, THERAPEUTIC TABLET PO SCH (10:07)
[2020-03-24] MEDS: ASCORBIC ACID 500 MG TABLET PO SCH (10:07)
[2020-03-24] MEDS: ZINC SULFATE 220 MG CAPSULE PO SCH (10:07)
[2020-03-24] MEDS: RisperiDONE 4 MG TABLET PO SCH ×2 (10:07→16:39)
[2020-03-24 16:14] VITALS: BP 116/68
[2020-03-25 03:48] VITALS: BP 110/70
[2020-03-25 08:21] LABS: BASOPHILS % (AUTO) 0.7 % (0.0-2.0); EOSINOPHILS % (AUTO) 2.7 % (1.0-6.0); HEMATOCRIT 38.2 % (36-46); HEMOGLOBIN 12.6 g/dL (12.0-16.0); LYMPHOCYTES # (AUTO) 2.1 K/uL (1.0-4.8); LYMPHOCYTES % (AUTO) 27.5 % (22.0-44.0); MEAN CORPUSCULAR HEMOGLOBIN 28.8 pg (26.0-34.0); MEAN CORPUSCULAR HGB CONC 33.1 G/dL (31.0-37.0); MEAN CORPUSCULAR VOLUME 87 fL (80-100); MONOCYTES # (AUTO) 0.5 K/uL (0.1-1.0); MONOCYTES % (AUTO) 5.9 % (2.0-9.0); NEUTROPHILS # (AUTO) 4.8 K/uL (1.8-7.7); NEUTROPHILS % (AUTO) 63.2 % (40.0-70.0); PLATELET COUNT (AUTO) 291 K/uL (150-450); RED BLOOD CELL COUNT(AUTO) 4.39 MIL/uL (4.00-5.20); RED CELL DISTRIBUTION WIDTH 14.8 % (11.5-14.5)
[2020-03-25 08:39] LABS: ALANINE AMINOTRANSFERASE 33 U/L (12-78); ALKALINE PHOSPHATASE 89 U/L (46-116); ANION GAP 5 mmol/L (8-16); ASPARTATE AMINOTRANSFERASE 29 U/L (15-37); BILIRUBIN,TOTAL 0.2 mg/dL (0.1-1.0); CALCIUM, TOTAL 8.9 mg/dL (8.8-10.5); CARBON DIOXIDE 31 mmol/L (22-29); CHLORIDE 106 mmol/L (98-107); CREATININE 0.76 mg/dL (0.60-1.30); GLOMERULAR FILTR. RATE CALC > 60 mL/min (>60); GLUCOSE,RANDOM 81 mg/dL (70-110); HDL CHOLESTEROL 54 mg/dL (40-60); PHOSPHORUS 4.9 mg/dL (2.5-4.9); POTASSIUM 4.7 mmol/L (3.5-5.1); SODIUM SERUM 142 mmol/L (136-145); TOTAL PROTEIN, SERUM 6.6 g/dL (6.4-8.2); TRIGLYCERIDES 170 mg/dL (15-150); UREA NITROGEN, BLOOD 21 mg/dL (7-18)
[2020-03-25 08:43] LABS: HEMOGLOBIN A1C 5.4 % (3.8-5.6)
[2020-03-25 08:45] VITALS: BP 121/90
[2020-03-25] MEDS: ASCORBIC ACID 500 MG TABLET PO SCH (08:51)
[2020-03-25] MEDS: MULTIVITAMINS WITH MINERALS, THERAPEUTIC TABLET PO SCH (08:51)
[2020-03-25] MEDS: RisperiDONE 4 MG TABLET PO SCH (08:52)
[2020-03-25] MEDS: ZINC SULFATE 220 MG CAPSULE PO SCH (08:52)
[2020-03-25 09:24] LABS: CHOL/HDL RATIO 4.5 (3.9-5.7); CHOLESTEROL 244 mg/dL (131-200); LDL CHOL (CALC.) 156 mg/dL (0-130)
[2020-03-25] MEDS ORDERED: ZINC220C14 PO (12:39)
[2020-03-25 21:23] LABS: FREE T4 (FREE THYROXINE) 0.69 ng/dL (0.76-1.46); THYROID STIMULATING HORMONE 2.73 uIU/mL (0.36-3.74)
== END 2020-03-25 13:30 | disposition home or self-care (01) | DRG 885 ==
LOC: B3A 18:00
PROVIDERS: ADMIT Psychiatry & Neurology Psychiatry; ATTEND Psychiatry & Neurology Psychiatry
DX: F20.0 Paranoid schizophrenia (principal); J44.9 Chronic obstructive pulmonary disease, unspecified; I10 Essential (primary) hypertension; F41.9 Anxiety disorder, unspecified; G47.00 Insomnia, unspecified; K21.9 Gastro-esophageal reflux disease without esophagitis; F29 Unspecified psychosis not due to a substance or known physiological condition; K59.00 Constipation, unspecified; M19.90 Unspecified osteoarthritis, unspecified site; F17.200 Nicotine dependence, unspecified, uncomplicated; Z71.6 Tobacco abuse counseling; Z88.8 Allergy status to other drugs, medicaments and biological substances
CPT/HCPCS: 83036; 83735; 84100; 84439; 84443; 87081